=== PATIENT | female | born 1970 | race Caucasian/White ===

== ENCOUNTER 2024-09-28 23:27 | Emergency (ER) | payer BC, SELFPAY ==
--- OUTSIDE RECORDS SUMMARY | 2024-09-23 10:00 | XMS_ITS | Encounter Summary ---
Author Organization [facility] Address [address] [place] [address] Care Team Providers Care Advertising Sales Assistant Name Role Phone Neema Segal NP Unavailable Neema Segal NP Primary Care Provider + Reason for Visit * Reason Comments New Patient * Consult, Test & Treat (Routine) - New Request Specialty Diagnoses / Procedures Referred By Neris gan Referred To Contact Hematology and Oncology Diagnoses Breast asymmetry Neema Segal, PASTER SUPERVISOR [address] [place] [address] Phone: tel: fax: Oncology: [address] [place], [place] Phone: tel: fax: Referral ID Status Reason Start Date Expiration Date V isits Requested Visits Authorized [id number] New Request 08/23/2024 08/23/2025 1 1 Encounter Details Date Type Department Care Team (Late st Contact Info) Description 09/23/2024 10:00 AM CDT Office Visit Oncology: [address] [place], [place] [phone] Madelin Mahmood PA-C [address] [place], [place] [phone] (Work) Abnormal finding on breast imaging (Primary Dx) Social History Tobacco Use Types Packs/Day Years Used Date Smoking Tobacco: Former Cigarettes 1 27 Q uit: 03/19/2020 Smokeless Tobacco: Never Alcohol Use Standard Drinks/Week Comments Yes 25 (1 standard drink = 0.6 oz pu re alcohol) Alcohol Use Answer Date Recorded Alcohol Use Yes 09/18/2024 Male: 9+ ounces (15+ Standard Drinks) per week T hreshold Not on file 09/18/2024 Female: 4.8+ ounces (8+ Standard Drinks) per wee k Threshold 15 09/18/2024 Comments No Sex and Gender Information Value Date Recorded Sex Assigned at Female 06/09/2023 11:51 AM CDT Legal Sex Female 9:22 AM CDT Gender Identity Female 06/09/2023 11:51 AM CDT Sexual Orientation Not on file documented as of this encounter Last Filed Vital Signs Vital Sign Reading Time Taken Comments Blood Pressure 124/83 09/23/2024 9:45 AM CDT Pulse 83 09/23/2024 9:45 AM CDT Temperature 36.4 C (97.6 F) 09/23/2024 9:45 AM CDT Respiratory Rate 16 09/23/2024 9:45 AM CDT Oxygen Saturation 99% 09/23/2024 9:45 AM CDT Inhaled Oxygen Concentration - - Weight 112.3 kg (247 lb 9.6 oz) 09/23/2024 9:45 AM CDT Height 182 cm (5' 11.65 ) 09/23/2024 9:45 AM CDT Body Mass Index 33.91 09/23/2024 9:45 AM CDT documented in this encounter Functional Status * Does the patient have a hearing impairment: Answer Date of Assessment Author No 09/23/2024 9:45 AM CDT Ramona Liu * Does the patient have a visual impairment: Answer Date of Assessment Author Yes 09/23/2024 9:45 AM CDT Ramona Liu documented as of this encounter Progress Notes * Madelin Mahmood PA-C - 09/23/2024 10:00 AM CDT Name: Clary Bateman : 1970 AGE: 54 y.o. Patient identification was verified with two patient identifiers prior to today's discussion. DATE OF SERVICE: 09/23/2024 Subjective: Reason for Visit: New Patient Clary Bateman is a 54 y.o. female. DIAGNOSIS: Abnormal left breast imaging at 3:00, posterior depth History of Present Illness Ms. Bateman is a female who presented to the [facility] on 09/23/2024 at age 54 for pre-biopsy evaluation of her left breast. Ms. Bateman had no breast concerns such as palpable masses, skin changes, or nipple discharge prior to outside screening mammogram which revealed a left breast asymmetry. This persisted on diagnostic mammogram, and ultrasound showed a corresponding focal area of abnormal echogenicity at 3:00, posterior depth. Biopsy was recommended, and she was referred to [facility] for the biopsy. She has a history of a breast reduction x 2, but no prior history of breast biopsies. The outside imaging was reviewed by a breast radiologist prior to the patient's clinical exam and left diagnostic mammogram, targeted left breast ultrasound, and left stereotactic biopsy was scheduled to follow the clinic visit on the same day. BREAST IMAGING: Mammogram: -- Bilateral screening mammogram 08/20/24 ([facility]) revealed heterogeneously dense breast tissue. There is a focal asymmetry in the left breast at 4:00, 10 cm FTN on the exaggerated CC view. -- Left diagnostic mammogram 08/20/24 ([facility]) revealed the focal asymmetry persists with added compression. Ultrasound: -- Left breast ultrasound 08/20/24 ([facility]) revealed a small cyst at 3-4:00, 11 cm FTN with an adjacent0.7 cm cyst. There is an echogenic benign appearing band of tissue at 4:00, 11 cm FTN. A band of hypoechoic tissue measuring 0.8 x 0.6 cm demonstrating internal blood flow corresponding to the level of the mammographic finding. BIRADS 4. PROCEDURE: Breast reduction, 1997 and 2001 PERTINENT PMH: hypothyroidism, obesity with BMI 34, former smoker with 27 pack year history (quit 2020) FAMILY HISTORY: No family history of breast, ovarian, prostate, pancreatic, colon, or melanoma cancers. REFERRED BY: Neema Segal APRN The following medical/surgical/family/social history and the list of medications are current, as of09/23/2024 Past Medical History: Acquired hypothyroidism Allergy Back pain Surgical History: Procedure Laterality Date BREAST REDUCTION Bilateral 2002 BREAST SURGERY 1997 Reduction surgery COLONOSCOPY July 2021 Family History Problem Relation Name Age of Onset Diabetes Mother Soumya 11 Heart Disease Maternal Grandfather 55 Hypertension Brother Richar 45 Social History Socioeconomic History Marital status: Tobacco Use Smoking status: Former Current packs/day: 0.00 Average packs/day: 1 pack/day for 27.0 years (27.0 ttl pk-yrs) Types: Cigarettes Quit date: 03/19/2020 Years since quittin.5 Smokeless tobacco: Never Substance and Sexual Activity Alcohol use: Yes Alcohol/week: 25.0 standard drinks of alcohol Types: 25 Cans of beer per week Drug use: Never Sexual activity: Yes Partners: Male control/protection: Surgical, Post-menopausal Allergies Allergen Reactions Sulfa (Sulfonamide Antibiotics) FEVER and RASH Objective: levothyroxine (SYNTHROID) 137 mcg tablet Take one tablet by mouth daily. Vitals: 09/23/24 0945 BP: 124/83 BP Source: Arm, Right Upper Pulse: 83 Temp: 36.4 ??C (97.6 ??F) Resp: 16 SpO2: 99% TempSrc: Oral PainSc: Zero Weight: 112.3 kg (247 lb 9.6 oz) Height: 182 cm (5' 11.65 ) Body mass index is 33.91 kg/m??. Pain Score: Zero Fatigue Scale: 0-None Pain Addressed: N/A Patient Evaluated for a Clinical Trial: No treatment clinical trial available for this patient. Eastern Cooperative Oncology Group performance status is 0, Fully active, able to carry on all pre-disease performance without restriction.. Physical Exam Vitals reviewed. RIGHT BREAST EXAM: Breast: Consistent with previous reduction mastopexy. Scar is well-healed. No palpable masses. No skin changes. Skin Erythema: No Attachment of Overlying Skin: No Peau d' orange: No Chest Wall Attachment: No Nipple Inversion: No Nipple Discharge: No LEFT BREAST EXAM: Breast: Consistent with previous reduction mastopexy. Scar is well-healed. No palpable masses. No skin changes. Skin Erythema: No Attachment of Overlying Skin: No Peau d' orange: No Chest Wall Attachment: No Nipple Inversion: No Nipple Discharge: No RIGHT SANDRA BASIN EXAM: Axillary: negative Infraclavicular: negative Supraclavicular: negative LEFT SANDRA BASIN EXAM: Axillary: negative Infraclavicular: negative Supraclavicular: negative Constitutional: Well-developed and well-nourished. No acute distress. HEENT: Head: Normocephalic and atraumatic. Eyes: No discharge. No scleral icterus. Cardiovascular: Normal rate. Pulmonary/Chest: Effort normal. No respiratory distress. Musculoskeletal: No edema. Lymphadenopathy: No axillary adenopathy. No infraclavicular or supraclavicular adenopathy. Neurological: Alert and oriented to person, place and time. No cranial nerve deficit. Skin: Warm and dry. No rash noted. No erythema. No pallor. Psychiatric: Normal mood and affect. Behavior is normal. Judgement and thought content normal. Assessment and Plan: Clary Bateman is a 54 y.o. female with abnormal left breast imaging at 3:00, posterior depth Outside imaging and exam findings were discussed with Ms. Bateman today. She is scheduled for a leftdiagnostic mammogram, targeted left breast ultrasound, and left stereotactic biopsy later today, and I will call her with the pathology results when they are available. We discussed that pathology typically takes 2-3 business days to get back. We discussed that results are now released to [facility] as soon as they are finalized, and she may receive her results before I have had the opportunity to contact her. She was reassured that we will discuss her results in detail as soon as possible once they are available. We discussed what to expect during and after the biopsy. There are 3 possible outcomes from having a breast biopsy: 1) benign pathology with no surgical intervention recommended, 2) benign pathology with high risk features, 3) malignancy. A benign result would be reviewed by the radiologist who performed the procedure for confirmation and further recommendations. Atypia and high risk lesions will be reviewed at at our Benign Concordance Conference for concordance and further rec ommendations. The results and recommendations from these reviews will be communicated via a second phone call. If she is in need of a surgical intervention, I will facilitate consultation with one ofour breast surgeons. If this is a breast cancer, I will also facilitate consultation with medical on cology. Potential (although rare) complications of breast biopsy including bleeding and infection were discussed. Ms. Bateman was educated regarding signs/symptoms of infection, and she was encouragedto call with any questions or concerns. Contact information was provided. The potential for a palpable hematoma formation was also discussed. She may use OTC pain medication, ice, and compression as needed for pain. Ms. Bateman will RTC pending pathology results. She was given ample time to ask questions all of which were answered to her satisfaction. Left diagnostic mammogram, targeted left breast ultrasound, and left stereotactic biopsy today as scheduled - contact with pathology results RTC pending pathology results Madelin Mahmood PA-C Based on the Cures Act all results will be immediately released to [facility]. We will be completing athorough review of the additional information and putting it in context with the overall diagnosis.We will call once this has been completed to discuss the results, as well as the next steps in treatment. documented in this encounter Plan of Treatment Not on file documented as of this encounter Visit Diagnoses Diagnosis Abnormal finding on breast imaging- Primary Other (abnormal) findings on radiological examination of breast documented in this encounter Historical Medications * This list may reflect changes made after this encounter. other medication one Dose once. E2-PT cream levothyroxine (SYNTHROID) 137 mcg tablet Take one tablet by mouth daily. added in this encounter Additional Health Concerns Assessment Noted Time A fall risk assessment has been complete d for the patient 09/23/2024 9:45 AM CDT documented as of this encounter Care Teams Advertising Sales Assistant Relationship Specialty Start Date End Date Neema Segal NP [address] [place] [address] PCP - General Nurse Practitioner 08/26/24 Neema Segal NP [address] [place] [address] REFERRING MD Nurse Practitioner 08/23/24 documented as of this encounter
--- OUTSIDE RECORDS SUMMARY | 2024-09-23 10:09 | XMS_ITS | Encounter Summary ---
Author Organization [facility] Address [address] [place] [address] Care Team Providers Care Supervisor Pairing And Inspecting Name Role Phone Neema Segal NP Unavailable [phone] Neema Segal NP Primary Care Provider + Reason for Visit * Radiology Services (Routine) - New Request Specialty Diagnoses / Procedures Referred By Neris gan Referred To Contact Radiology Diagnoses Abnormal finding on breast imaging Procedures US BREAST TARGET LT US BREAST COMPLETE LT Madelin Mahmood PA-C [address] [place] [address] Phone: tel: fax: Referral ID Status Reason Start Date Expiration Date V isits Requested Visits Authorized [id number] New Request 08/27/2024 08/27/2025 1 1 Encounter Details Date Type Department Care Team (Latest Contact Info) Description 09/23/2024 10:09 AM CDT Hospital Encounter Imaging, Breast Ultrasound: [facility] [address] [place] [address]. [address], [address] [place] [phone] Madelin Mahmood PA-C [address] [place] [address] Arrived Discharge Disposition: Home or Self Care Social History Tobacco Use Types Packs/Day Years [...] on file documented as of this encounter Functional Status * Does the patient have a hearing impairment: Answer Date of Assessment Author No 09/23/2024 9:45 AM CDT Ramona Liu * Does the patient have a visual impairment: Answer Date of Assessment Author Yes 09/23/2024 9:45 AM CDT Ramona Liu documented as of this encounter Medications at Time of Discharge levothyroxine (SYNTHROID) 137 mcg tablet Take one tablet by mouth daily. other medication one Dose once. E2-PT cream documented as of this encounter Discharge Disposition Disposition Code Departure Means Destination Home or Self [facility] documented in this encounter Plan of Treatment Not on file documented as of this encounter Procedures Procedure Name Priority Date/Time Associated Diagnosis Comments US BREAST TARGET LT Routine 09/23/2024 1 1:39 AM CDT Abnormal finding on breast imaging documented in this encounter Results * (ABNORMAL) US BREAST TARGET LT (09/23/2024 11:39 AM CDT) Anatomical Region Laterality Modality Breast Left Ultrasound Impressions 09/23/2024 2:25 PM CDT : Low suspicion dilated duct versus fibrocystic change in the left breast at 3:00, 8 cm from the nipple. Ultrasound-guided biopsy will be performed today. ASSESSMENT: Left: 4 - Suspicious Overall: 4 - Suspicious RECOMMENDATION: Ultrasound - Guided Breast Biopsy - Left 09/24/2024 Electronically signed and approved by: Ana Soares MD 09/23/2024 2:25 PM By my electronic signature, I attest that I have personally reviewed the images for this examination and formulated the interpretations and opinions expressed in this report Narrative 09/23/2024 2:25 PM CDT [facility], Mammography: [facility] [address] [place] [phone] EXAM: MAMMO DIAGNOSTIC LT/DIEGO US BREAST TARGET LT 09/23/24 11:07 AM INDICATION: 54-year-old female presents for further evaluation of left breast findings initially identified on external facility mammogram prior to planned left breast biopsy. COMPARISON: Compared to: 07/25/2022 MAMMO SCREEN EXTERNAL IMAGING 08/14/2023 MAMMO SCREEN EXTERNAL IMAGING 08/20/2024 US BREAST EXTERNAL IMAGING 08/20/2024 MAMMO SCREEN EXTERNAL IMAGING BREAST COMPOSITION: There are scattered areas of fibroglandular density. TECHNIQUE: Mammogram: 2-D and 3-D (digital tomosynthesis) mammographic images were obtained of the left breast, including spot compression views. Ultrasound: Targeted left handheld breast ultrasound was performed by a automotive welder and Dr. Soares. FINDINGS: Diagnostic Mammogram: Spot compression views of the focal asymmetry of concern initially identified on external facility screening mammogram from 08/20/2024 demonstrate normal-appearing glandular tissue and a 0.7 cm benign-appearing low-density mass within the outer left breast at 2:30-3:00, posterior depth. There are postsurgical findings of prior left breast reduction. Diagnostic Ultrasound: There is normal glandular tissue and a few subcentimeter cysts in the left breast at 3:00, 9 cm from the nipple accounting for the focal asymmetry of concern on mammogram, including a dominant 0.7 cm cyst accounting for the mammographic mass. There is fibrocystic change versus a dilated duct at 3:00, 8 cm from the nipple, which will be the target for the ultrasound-guided biopsy today. 5 morphologically normal-appearing left axillary lymph nodes are documented. Post-procedure mammogram: There is an open coil tissue marker in expected position of the ultrasound finding. us Madelin Mahmood PA-C US ORDERABLES Final Result documented in this encounter Visit Diagnoses Diagnosis Abnormal finding on breast imaging Other (abnormal) findings on radiological examination of breast documented in this encounter Additional Health Concerns Assessment Noted Time A fall risk assessment has been complete d for the patient 09/23/2024 9:45 AM CDT documented as of this encounter Care Teams Supervisor Pairing And Inspecting Relationship Specialty Start Date End Date Neema Segal NP [address] [place] [address] PCP - General Nurse Practitioner 08/26/24 Neema Segal NP [address] [place] [address] REFERRING MD Nurse Practitioner 08/23/24 documented as of this encounter
--- OUTSIDE RECORDS SUMMARY | 2024-09-23 10:09 | XMS_ITS | Encounter Summary ---
Author Organization [facility] Address [address] [place] [address] Care Team Providers Care Client Hr Manager Name Role Phone Neema Segal NP Unavailable [phone] Neema Segal NP Primary Care Provider + Reason for Referral * Radiology Services (Routine) - New Request Specialty Diagnoses / Procedures Referred By Neris gan Referred To Contact Radiology Diagnoses Abnormal finding on breast imaging Procedures MAMMO DIAGNOSTIC LT/Madelin Bloom PA-C [address] [place] [address] Phone: tel: fax: Referral ID Status Reason Start Date Expiration Date V isits Requested Visits Authorized [id number] New Request 08/27/2024 08/27/2025 1 1 Reason for Visit * Radiology Services (Routine) - New Request Specialty Diagnoses / Procedures Referred By Neris gan Referred To Contact Radiology Diagnoses Abnormal finding on breast imaging Procedures MAMMO DIAGNOSTIC LT/Madelin Bloom PA-C [address] [place] [address] Phone: tel: fax: Referral ID Status Reason Start Date Expiration Date V isits Requested Visits Authorized [id number] New Request 08/27/2024 08/27/2025 1 1 Encounter Details Date Type Department Care Team (Latest Contact Info) Description 09/23/2024 10:09 AM CDT Hospital Encounter Imaging, Mammography: [address], [address] [place], [place] [phone] Madelin Mahmood PA-C [address] [facility] [place] [address] Arrived Discharge Disposition: Home or Self Care [...] Code Departure Means Destination Home or Self F[facility] documented in this encounter Plan of Treatment Not on file documented as of this encounter Procedures Procedure Name Priority Date/Time Associated Diagnosis Comments MAMMO DIAGNOSTIC LT/DIEGO Routine 09/23/2024 11:07 AM CDT Abnormal finding on breast imaging documented in this encounter Results * (ABNORMAL) MAMMO DIAGNOSTIC LT/DIEGO (09/23/2024 11:07 AM CDT) Anatomical Region Laterality Modality Breast Left Mammography Impressions 09/23/2024 2:25 PM CDT : Low [...] report Narrative 09/23/2024 2:25 PM CDT [facility] Imaging, Mammography: [facility] [address] [phone] EXAM: MAMMO DIAGNOSTIC LT/DIEGO US BREAST TARGET [...] handheld breast ultrasound was performed by a home health care respiratory therapist and Dr. Soares. FINDINGS: Diagnostic Mammogram: Spot [...] the ultrasound finding. us Madelin Mahmood PA-C MAMMO ORDERABLES Final Result documented in this encounter Visit Diagnoses Diagnosis Abnormal finding on breast imaging Other (abnormal) findings on radiological examination of breast documented in this encounter Additional Health Concerns Assessment Noted Time A fall risk assessment has been complete d for the patient 09/23/2024 9:45 AM CDT documented as of this encounter Care Teams Client Hr Manager Relationship Specialty Start Date End Date Neema Segal NP [address] [place] [address] PCP - General Nurse Practitioner 08/26/24 Neema Segal NP [address] [place] [address] REFERRING MD Nurse Practitioner 08/23/24 documented as of this encounter
--- OUTSIDE RECORDS SUMMARY | 2024-09-23 10:10 | XMS_ITS | Encounter Summary ---
Author Organization [facility] Address [address] [place] [address] Care Team Providers Care Rink Rat Name Role Phone Neema Segal NP Unavailable [phone] Neema Segal NP Primary Care Provider + Reason for Visit * Radiology Services (Routine) - New Request Specialty Diagnoses / Procedures Referred By Neris gan Referred To Contact Radiology Diagnoses Abnormal finding on breast imaging Procedures US BIOPSY BREAST 1ST LESION LT STEREO BR BX/CLIP DEPL/SPEC/LT Madelin Mahmood PA-C [address] [place] [address] Phone: tel: fax: Referral ID Status Reason Start Date Expiration Date V isits Requested Visits Authorized [id number] New Request 08/27/2024 08/28/2025 1 1 Encounter Details Date Type Department Care Team (Latest Contact Info) Description 09/23/2024 10:10 AM CDT - 09/23/2024 11:59 PM CDT Hospital Encounter Imaging, Breast Ultrasound: [address], [address] [place] [address] Madelin Mahmood PA-C [address] [place] [address] Arrived Discharge Disposition: Home or [...] Code Departure Means Destination Home or Self Correction documented in this encounter Progress Notes * Haleigh Milian RN - 09/23/2024 1:00 PM CDT I spoke with Clary (after verifying her full name and date of ) regarding her breast biopsy and imaging scheduled at the [place] location on 09/23/2024. She was informed after the clinic appointment she will be escorted to Breast Imaging for 11:00 mammogram and ultrasound, prior to biopsy. A driver retraining instructor is not required, wear comfortable clothing and supportive bra, there are no food or fluid restrictions prior to her procedure . She was educated in detail what to expect before, during and after her procedure. Clary verified she currently takes no anti-coagulants or have known bleeding disorders. Her questions were answered and she verbalized understanding of the information I gave her over the phone today. * Nataliia Ryder RN - 09/23/2024 1:00 PM CDT Scan: Ultrasound Guided Breast Procedure Order verified: Yes Allergies reviewed: Pt denies any contraindications including allergies/sensitivity to metal or nickel: Yes Patient medical history and home medication reviewed: Yes. Pre-Procedure: Patient educated on breast procedure, possible complications and follow-up care. Allquestions addressed and consent signed with provider. Skin marked per protocol. Patient does not request post procedure callback. Will await pathology results callback from provider. Will call with any questions or concerns given post- procedure care instructions and callback number. [facility] [facility] Nurse [phone] or [phone] documented in this encounter Plan of Treatment Not on file documented as of this encounter Procedures Procedure Name Priority Date/Time Associated Diagnosis Comments US BIOPSY BREAST 1ST LESION LT Routine 09/23/2024 1:35 PM CDT Abnormal finding on breast imaging SURGICAL PATHOLOGY Routine 09/23/2024 1: 29 PM CDT Abnormal finding on breast imaging documented in this encounter Results * SURGICAL PATHOLOGY (09/23/2024 1:29 PM CDT) Final Diagnosis A. Breast, Left Breast 3:00 8cm FTN , ultrasound guided biopsy: Usual ductal hyperplasia, apocrine metaplasia, fibrocystic changes. Attestation: By this signature, I attest that I have personally formulated the final interpretation expressed in this report and that the above diagnosis is based upon my examination of the slides and/or other material indicated in this report. 09/24/2024 11:52 AM CDT [facility] DEPT PATH AND LAB MEDICINE at 1152 CDT Diagnosis Comment Pursuant to the Social Media Editor Program at the [facility] Pathology Department, selected slides from this case have been concurrently reviewed by the following pathologist: Dr. Le Porter who agrees with the final diagnosis. 09/24/2024 11:52 AM CDT [facility] DEPT PATH AND LAB MEDICINE Gross Description A. Received in formalin labeled left breast 3:00 8 cm FTN is a 1.5 x 0.2 x 0.1 cm aggregate of cylindrical yellow-zavala, bloodstained, fatty tissue fragments. The specimen is entirely submitted in A1. The breast biopsy is removed from the patient at 1329 on 09/23/2024, placed in formalin at 1335 on 09/23/2024, and not removed from formalin until 2340 on 09/23/2024. (nh) 09/24/2024 11:52 AM CDT [facility] DEPT PATH AND LAB MEDICINE Other Information Testing performed at [facility], [address] [place] [address]. [facility] #[id number]. 09/24/2024 11:52 AM CDT [facility] DEPT PATH AND LAB MEDICINE Tissue SPECIMEN FROM LEFT BREAST / Unknown 09/23/2024 1:29 PM CDT 09/23/2024 1:48 PM CDT us Madelin Mahmood PA-C [facility] BKR PATH/CYTO ORD Final Result Performing Organization Address City/State/[facility] Co de Phone Number [facility] [address] [place] [address], documented in this encounter Visit Diagnoses Diagnosis Abnormal finding on breast imaging Other (abnormal) findings on radiological examination of breast documented in this encounter Administered Medications Inactive Administered Medications Medication Order MAR Action Action Date Dose Rate Site buffered lidocaine 1% /EPINEPHrine [id number] vial 3 mL, Injection, ONCE, 1 dose, On 09/23/24 at 1345, Compound in procedure area - Use Locally as Anesthetic Lidocaine 1% - EPINEPHrine 1:100,000 8.5 mL Sodium bicarbonate 8.4% 1.5 mL Vial Total Volume 10 mL, DO NOT SEND this medication unless it is requested. This med is usually available in floor stock. Given 09/23/2024 1:36 PM CDT 3 mL buffered lidocaine 1% syringe 1 mL, Injection, ONCE, 1 dose, On Mon09/23/24 at 1345, Compound in procedure area - Use Locally as Anesthetic Lidocaine 1% injection 4.5 mL Sodium bicarbonate 8.4% 0.5 mL Syringe Total Volume 5 mL, DO NOT SEND this medication unless it is requested. This med is usually available in floor stock. Given 09/23/2024 1:36 PM CDT 1 mL documented in this encounter Additional Health Concerns Assessment Noted Time A fall risk assessment has been complete d for the patient 09/23/2024 9:45 AM CDT documented as of this encounter Care Teams Rink Rat Relationship Specialty Start Date End Date Neema Segal NP [address] [place] [address] PCP - General Nurse Practitioner 08/26/24 Neema Segal NP [address] [place] [id number] REFERRING MD Nurse Practitioner 08/23/24 documented as of this encounter
--- NOTE | 2024-09-28 23:34 | ECG_ITS ---
[email or web address] Test Date: 2024-09-28 Pat Name: Clary Escobedo Department: Room: Gender: Female Log Turner: : 1970 Requested By: Gentry Acosta Order Number: [id number] Montana MD: Dion Suarez M.D. Measurements Intervals [place] Rate: 171 P: 0 TN: 0 QRS: 22 QRSD: 86 T: 18 QT: 267 QTc: 451 Interpretive Statements ATRIAL FIBRILLATION WITH RAPID VENTRICULAR RESPONSE MODERATE ST DEPRESSION [0.05+ mV ST DEPRESSION] CRITICAL TEST RESULT No previous ECG available for comparison Electronically Signed On 09-29-2024 18:35:34 CDT by Dion Suarez M.D. [email or web address]
--- OUTSIDE RECORDS SUMMARY | 2024-09-28 23:39 | XMS_ITS | Clinical Summary ---
Author Organization [facility] Address [address] [place] [address] Phone [facility]Everywhere[facility] Care Team Providers Care Military Cook Name Role Phone Neema Segal NP Primary Care Provider + Allergies Active Allergy Reactions Criticality Noted Date Comments Sulfa Antibiotics Low 03/07/2013 Other reaction(s): fever/rash Medications UNABLE TO FIND Med Name: ET/PT 2.5/200/4mg/ml Active levothyroxine (SYNTHROID) 75 MCG tabletIndications :Subclinical hypothyroidism Take 1 tablet (75 mcg total) by mouth 1 (one) time each day. 90 tablet 025 Active Testosterone 10 MG/ACT (2%) gel 0 Refill(s), Therapy type = Maintenance 024 2024 Discontinued Progesterone 200 MG capsule TAKE 1 CAPSULE BY MOUTH DAILY AT BEDTIME 2024 Discontinued levothyroxine (SYNTHROID) 75 MCG tabletIndications :Subclinical hypothyroidism TAKE 1 TABLET(75 MCG) BY MOUTH DAILY 90 tablet 025 2024 Discontinued(R eorder) Active Problems Problem Noted Date Diagnosed Date Middle insomnia 06/26/2024 Herpes simplex 06/28/2021 Encounter for screening mamm ogram for malignant neoplasm of breast 05/25/2020 Other depressive disorder 01/17/2014 Overweight 11/29/2013 Otalgia 09/08/2012 Encounters Date Type Department Care Team Description 09/23/2024 Orders Only [facility] [address] [place] [phone] Neema Pop NP Breast asymmetry 09/17/[address] [address] Neema Pop NP Subclinical hypothyroidism 09/09/2024 4:30 PM CDT Office Visit [address] [address] Neema Pop NP Dietary counseling and surveillance (Primary Dx); Other specified diabetes mellitus with other specified complication, without long-term current use of insulin ([facility]); Dyslipidemia; Subclinical hypothyroidism 09/06/2024 Results Follow-Up [address] [address] Neema Pop NP 09/03/2024 9:00 AM CDT Office Visit [address] [address] Neema Pop NP Annual physical exam (Primary Dx); Class 2 obesity; BMI 35.0-35.9,adult; Dietary counseling and surveillance; Thyroid disorder; Depression with anxiety; Osteopenia, unspecified location; Refused pneumococcal vaccine; History of smoking 10-25 pack years 08/23/[address] [phone] Samantha Barnett RN 08/23/2024 Orders Only [address] [address] Samantha Barnett, MARQUISE Breast asymmetry 08/21/2024 9:00 AM CDT Office Visit [address] [phone] Neema Pop NP Breast asymmetry (Primary Dx) 08/02/2024 Refill [facility] [address] [place] [phone] Neema Pop NP Subclinical hypothyroidism 07/24/2024 11:15 AM CDT Office Visit [facility] [address] [place] [phone] Chin Hernandez MD Middle insomnia (Primary Dx) from Last 3 Months Immunizations Immunization Administration Dates Next Due Covid-19 (Vesta J&J) (CVX-212) 11/11/2020 Tdap (ADACEL BOOSTRIX) (CVX-115) 06/28/2021 Zoster (Shingrix) (TWO VIALS -MUST MIX) recombinant (CVX-187) 10/04/2021,06/28/2021 Family History Medical History Relation Name Comments Heart disease Maternal Grandfather No Known Problems Maternal Grandmother Diabetes Mother Relation Name Status Comments Brother Alive Father Maternal Grandfather Maternal Grandmother Alive Mother Alive Paternal Grandfather Paternal Grandmother Social History Tobacco Use Types Packs/Day Years Used Date Smoking Tobacco: Former Cigarettes 1 20 0 06/29/1999 - 06/29/2019 Smokeless Tobacco: Never Tobacco Cessation:Counseling Given: Not Answered Alcohol Use Standard Drinks/Week Comments Not Currently 0 (1 standard drink = 0.6 oz pur e alcohol) 20-30 beers over the weekend Intimate Partner Violence Answer Date R ecorded Insults You Not on file 05/19/2021 Threatens You Not on file 05/19/2021 Screams at You Not on file 05/19/2021 Physically Hurt Not on file 05/19/2021 Intimate Partner Violence Score Not on file 05/19/2021 Alcohol Use Answer Date Recorded Alcohol Use Status Not Currently 01/19/2023 Financial Resource Strain Answer Date R ecorded In the past 12 months has e electric, gas, oil, or water company threatened to shut off services in your home? No 08/28/2024 Do problems getting child ca re make it difficult for you to work or study? No 08/28/2024 Do you have a high school degree? Yes 08/28/2024 Do you have a job? Yes 08/28/2024 How often does this describe you? I don't have enough money to pay my bills. Never 08/28/2024 Depression Answer Date Recorded PHQ Total Score 7 09/03/2024 Stress Answer Date Recorded Stress in your Life Moderate 08/28/2024 Dealing with Stress Moderately effective 025 Physical Activity Answer Date Recorded How often do you engage in m oderate physical activity for 30 minutes or more? 1 to 3 days a week 08/28/2024 Vigorous Physical Activity 1 to 3 days a week Time Spent Sitting More than 8 hours 08/28/2024 Food Insecurity Answer Date Recorded Within the past 12 months, y ou worried that your food would run out before you got money to buy more. Never true 08/28/2024 Within the past 12 months, t he food you bought just didn t last and you didn t have money to get more. Never true 08/28/2024 Transportation Needs Answer Date Record ed In the past 12 months, has l ack of transportation kept you from medical appointments, meetings, work, or from getting things needed for daily living? (check all that apply) No 2024 Housing Stability Answer Date Recorded Are you worried or concerned that in the next two months you may not have stable housing that you own, rent, or stay in as a part of a household? No 08/28/[address] you li ve. Do you have problems with any of the following? (check all that apply) None of the above 08/11 Comments No Sex and Gender Information Value Date Recorded Sex Assigned at Female 06/29/2021 7:38 AM CDT Legal Sex Female 2:01 AM MANAGER DELIVERY Gender Identity Female 06/29/2021 7:38 AM CDT Sexual Orientation Not on file Last Filed Vital Signs Vital Sign Reading Time Taken Comments Blood Pressure 136/88 09/03/2024 9:11 AM CDT Pulse 78 09/03/2024 9:11 AM CDT Temperature 37.1 C (98.7 F) 09/03/2024 9:11 AM CDT Respiratory Rate 20 09/03/2024 9:11 AM CDT Oxygen Saturation 98% 09/03/2024 9:11 AM CDT Inhaled Oxygen Concentration - - Weight 112 kg (247 lb 11.2 oz) 09/03/2024 9:11 A M CDT Height 180.3 cm (5' 11 ) 09/03/2024 9:11 AM CDT Body Mass Index 34.55 09/03/2024 9:11 AM CDT Plan of Treatment Health Maintenance Due Date Last Done Comments Diabetic Comprehensive Foot Exam 1981 Diabetic Retinal Eye Exam 1981 Diabetic Kidney Health Eval (eGFR & Alb/CR ratio urine) 04/29/2023 04/29/2022, 01/26/2022, 07/15/2021 Lung Cancer Screening 01/07/2024 01/06/2023 Influenza Immunization (#1) 2024 Hemoglobin A1C Testing 12/04/2024 , 10/11/2023, 11/18/2022, Additional history exists Annual Preventive Exam 09/03/2025 5, 09/03/2024, 11/18/2022, Additional history exists Covid-19 Immunization (2 - season) 2025 11/11/2020 Postponed from 11/12/2023 (Awaiting appt) Dental Cleaning/Exam 09/03/2025 09/03/2024, 11/19/19 23 Pneumococcal: Ped (0 to 5 Yrs) and At-Risk Member (6 to 64 Yrs) (1 of 2 - PCV) 09/08/2025 Postponed from 1990 (Awaiting appt) Breast Cancer Screening 10/02/2025 06/10/19 23, 05/25/2020, 05/25/2020, Additional history exists Postponed from 06/09/2024 (Awaiting appt) Cervical Cancer Screening 06/28/2026 06/28/2021, Tetanus Diphtheria and Pertussis Immunization (3 - Td or Tdap) 06/29/2031 06/28/2021, 04/13/2012 Colorectal Cancer Screening 07/28/2031 07/27/2021 Zoster Immunization Completed 10/04/2021, Hep B Infection Screening - Triple Screen Discontinued 11/18/2022, 06/28/2021, 06/28/2021, Additional history exists Hepatitis C Screening Completed 11/18/2022, 022 HIV Screening Completed 09/03/2024, 11/18/2022 HIB Immunization Aged Out No longer e ligible based on patient's age to complete this topic HPV Immunization Aged Out No longer e ligible based on patient's age to complete this topic Hepatitis A Immunization Aged Out No longer eligible based on patient's age to complete this topic Hepatitis B Immunization Discontinued Polio Immunization Aged Out No longer eligible based on patient's age to complete this topic Goals Goal Patient Goal Type Associated Problems Recent Progress Patient-Stated? Author I will walk after dinner 5/7 and after breakfast 2/7 days. General On track( 023 11:32 AM CDT) Yes Marci Melo, MARQUISE Note: SMART Goal: I will walk after dinner 5/7 and after breakfast 2/7 days. Motivators: Barriers/Strategies: Confidence (1-10): 10 I will observe what and how much I eat this week. And what helps and hurts me that is in my environment General Yes Marci Melo, RN Note: SMART Goal: I will observe what and how much I eat this week. And what helps and hurts me that is in my environment Motivators: Barriers/Strategies: Confidence (1-10): I will eat 1/2 cup of beans 5/7 week. General Yes Marci Melo, RN Note: SMART Goal: I will eat 1/2 cup of beans 5/7 week. Motivators: Barriers/Strategies: Confidence (1-10): Procedures Procedure Name Priority Date/Time Associated Diagnosis Comments AMB REFERRAL TO BREAST CLINIC Routine 09/23/2024 3:47 PM CDT Breast asymmetry N/O EGG COMPONENT PANEL - [facility] Routine 09/03/2024 9:30 AM CDT REFLEX RESPIRATORY ALLERGY PROFILE Routine 09/03/2024 9:30 AM CDT FOOD ALLERGY PROFILE WITH REFLEXES Routine 09/03/2024 9:30 AM CDT Annual physical exam TSH THYROID STIMULATING HORMONE WITH REFLEX TO T4 Routine 09/03/2024 9:30 AM CDT Thyroid disorder Depression with anxiety RPR WITH REFLEX TO TITER (QT RPR) AND CONFIRMATORY TESTING Routine 09/03/2024 9:30 AM CDT Annual physical exam IRON, TIBC TOTAL IRON BINDING CAPACITY AND FERRITIN PANEL - [facility]SHARON Routine 09/03/2024 9:30 AM CDT Annual physical exam HIV 1/2 AG AND ABS, FOURTH GENERATION W/REFLEXES Routine 09/03/2024 9:30 AM CDT Annual physical exam HEMOGLOBIN A1C Routine 09/03/2024 9:30 AM CDT Class 2 obesity BMI 35.0-35.9,adult Dietary counseling and surveillance Annual physical exam LIPID PANEL Routine 09/03/2024 9:30 AM CDT Class 2 obesity BMI 35.0-35.9,adult Dietary counseling and surveillance Annual physical exam COMPREHENSIVE METABOLIC PANEL Routine 09/03/2024 9:30 AM CDT Class 2 obesity BMI 35.0-35.9,adult Dietary counseling and surveillance Annual physical exam CBC WITH DIFFERENTIAL/PLATELET Routine 09/03/2024 9:30 AM CDT Annual physical exam CT THORAX LOW DOSE LUNG CANCER SCREENING WITHOUT CONTRAST CPT [id number] Routine 01/06/2023 7:29 AM CDT Annual physical exam HEPATITIS PANEL, GENERAL - [facility] Routine 11/18/2022 9:53 AM CDT Annual physical exam MAMMOGRAM SCREENING DIGITAL BREAST TOMOSYNTHESIS 3D BILATERAL CPT [id number] Routine 06/09/2022 8:16 AM CDT Well woman exam with routine gynecological exam ALBUMIN/CREATININE RATIO, RANDOM URINE ([id number]) Routine 04/29/2022 10:42 AM MANAGER DELIVERY Screening for diabetes mellitus PAP TEST AUTO AGE BASED GUIDELINES Routine 06/28/2021 12:00 PM CDT Well woman exam with routine gynecological exam from Last 3 Months or Most Recently Relevant to Health Maintenance Results * Ambulatory referral to Breast Clinic (09/23/2024 3:47 PM CDT) Neema Segal NP OUTPATIENT REFERRAL ERIC GARIBAY Final Result * (ABNORMAL) N/O EGG COMPONENT PANEL - [facility] (09/03/2024 9:30 AM CDT) Egg (nGal d 2 Ovalbumin) IgE 0.39(H) kU/L [facility] CLASS (ALLERGEN) [address] [facility] Ovomucoid 0.10(H) kU/L [facility] Class Ovomucoid Ab IgE 0/1 [facility] Comment: Positive egg component IgE results may be clinically significant even if quantification levels (kU/L) are low. Gal d 1 (Ovomucoid) is resistant to heat denaturation and IgE reactivity to this egg component is associated with allergic reactions to both raw and cooked egg, even in baked goods. Gal d 2 (Ovalbumin) is relatively susceptible to heat denaturation. While IgE reactivity to Gal d 2 is associated with allergic reactions to raw and whole cooked egg, in baked goods, egg may be tolerated. Children with IgE reactivity directed primarily to Gal d 2 are more likely to outgrow their egg allergy than children with IgE reactivity directed primarily to Gal d 1. Additional information can be found at [email or web address] 09/03/2024 9:30 AM CDT 09/03/2024 10:30 PM CDT Neema Segal NP LAB BLOOD ORDERABLES Fin al Result [facility] [address] [phone] * (ABNORMAL) Food Allergy Profile With Reflexes - [facility] (45100) (09/03/2024 9:30 AM CDT) Egg white IgE 0.37(H) kU/L [facility] Class Egg White IgE 1 [facility] Peanut IgE <0.10 kU/L [facility] CLASS PEANUT IGE 0 [facility] Wheat IgE 0.21(H) kU/L [facility] Class Wheat 0/1 [facility] Jay Em IgE <0.10 kU/L [facility] Class Jay Em IgE 0 [facility] Codfish IgE <0.10 kU/L [facility] Class Codfish IgE 0 [facility] Milk IgE <0.10 kU/L [facility] Class Milk IgE 0 [facility] SOYBEAN (F14) IGE <0.10 kU/L [facility] Class Soybean IgE 0 [facility] Shrimp IgE <0.10 kU/L [facility] Class - Shrimp IgE Rast 0 [facility] Scallop IgE <0.10 kU/L [facility] Class 0 [facility] Sesame seed IgE <0.10 kU/L [facility] Class Sesame Seed (F10) 0 [facility] Taylor nut IgE <0.10 kU/L [facility] Class 0 [facility] Cashew nut IgE <0.10 kU/L [facility] Class Cashew IgE 0 [facility] Agate IgE <0.10 kU/L [facility] Class Agate IgE 0 [facility] [place] IgE <0.10 kU/L [facility] Class 0 [facility] Tuna IgE <0.10 kU/L [facility] Class Tuna IgE 0 [facility] Blood (Blood, Venous) 09/03/2024 9:30 AM CDT 09/03/2024 10:30 PM CDT us Neema Segal INFORMATION MANAGER LAB BLOOD ORDERABLES Fin al Result [facility] [address] [phone] * REFLEX RESPIRATORY ALLERGY PROFILE ([id number]) (09/03/2024 9:30 AM CDT) Interpretation [facility] Comment: Specific Level of Allergen IGE Class kU/L Specific IGE Antibody ----- --------- 0 <0.10 Absent/Undetectable 0/1 0.10-0.34 Very Low Level 1 0.35-0.69 Low Level 2 0.70-3.49 Moderate Level 3 3.50-17.4 High Level 4 17.5-49.9 Very High Level 5 50-100 Very High Level 6 >100 Very High Level The clinical relevance of allergen results of 0.10-0.34 kU/L are undetermined and intended for specialist use. Allergens denoted with a include results using one or more analyte specific reagents. In those cases, the test was developed and its analytical performance characteristics have been determined by [email or web address]. It has not been cleared or approved by the U.S. Food and Drug Administration. This assay has been validated pursuant to the CLIA regulations and is used for clinical purposes. 09/03/2024 9:30 AM CDT 09/03/2024 10:30 PM CDT Neema Segal INFORMATION MANAGER LAB BLOOD ORDERABLES [facility] al Result [facility] [address] [place] [address] * TSH Thyroid Stimulating Hormone with reflex to T4 (01485) (09/03/2024 9:30 AM CDT) TSH w/reflex to FT4 3.53 mIU/L [email or web address] Comment: Reference Range > or = 20 Years 0.40-4.50 Ranges First trimester 0.26-2.66 Second trimester 0.55-2.73 Third trimester 0.43-2.91 Blood (Blood, Venous) 09/03/2024 9:30 AM CDT 09/03/2024 10:30 PM CDT Neema Segal INFORMATION MANAGER LAB BLOOD ORDERABLES Fin al Result Performing Organization Address [facility] de Phone Number [facility] [address] [place] [address] * Iron, TIBC Total Iron Binding Capacity and Ferritin Panel - [facility],Sharon ([id number]) (09/03/2024 9:30 AM CDT) Pathologist [facility] Iron 142 45 - 160 mcg/dL [facility] TIBC 347 250 - 450 mcg/dL (calc) [facility] Iron Saturation 41 16 - 45 % (calc) [facility] Ferritin 82 16 - 232 ng/mL [facility] Blood (Blood, Venous) 09/03/2024 9:30 AM CDT 09/03/2024 10:30 PM CDT Neema Segal INFORMATION MANAGER LAB BLOOD ORDERABLES Fin al Result Performing Organization Address [facility] de Phone Number [facility] [address] [place] [address] * CBC Complete Blood Count with Differential and Platelet (08646) (09/03/2024 9:30 AM CDT) Pathologist [facility] Auto WBC 5.7 3.8 - 10.8 Thousand/u L [facility] RBC 4.81 3.80 - 5.10 Million/uL [facility] Hemoglobin 14.6 11.7 - 15.5 g/dL [facility] Hematocrit 44.6 35.0 - 45.0 % [facility] MCV 92.7 80.0 - 100.0 fL [facility] MCH 30.4 27.0 - 33.0 pg [facility] MCHC 32.7 32.0 - 36.0 g/dL [facility] Comment: For adults, a slight decrease in the calculated MCHC value (in the range of 30 to 32 g/dL) is most likely not clinically significant; however, it should be interpreted with caution in correlation with other red cell parameters and the patient's clinical condition. RDW 12.4 11.0 - 15.0 % [facility] Platelets 242 140 - 400 Thousand/u L [facility] MPV 9.6 7.5 - 12.5 fL [facility] Neutrophils Absolute 3,739 1,500 - 7,800 cells/uL [facility] Lymphocytes Absolute 1,334 850 - 3,900 cells/uL [facility] Monocytes Absolute 405 200 - 950 cells/uL [facility] Eosinophils Absolute 194 15 - 500 cells/uL [facility] Basophils Absolute 29 0 - 200 cells/uL [facility] Neutrophils Relative 65.6 % [facility] Lymphocytes Relative 23.4 % [facility] Monocytes Relative 7.1 % [facility] Eosinophils Relative 3.4 % [facility] Basophils Relative 0.5 % [facility] Blood (Blood, Venous) 09/03/2024 9:30 AM CDT 09/03/2024 10:30 PM CDT Neema Segal INFORMATION MANAGER LAB BLOOD ORDERABLES Fin al Result Performing Organization Address [facility] de Phone Number [facility] [address] [place] [address] * RPR (Diagnosis) with Reflex to Titer and Confirmatory Testing (45001) (09/03/2024 9:30 AM CDT) RPR NON-REACTI VE NON-REACTI VE [facility] Comment: No laboratory evidence of syphilis. If recent exposure is suspected, submit a new sample in 2-4 weeks. Blood (Blood, Venous) 09/03/2024 9:30 AM CDT 09/03/2024 10:30 PM CDT Neema Segal INFORMATION MANAGER LAB BLOOD ORDERABLES Fin al Result [facility] [address] [place] [address] * HIV 1/2 Antigen and Antibodies, 4th Generation, with Reflexes (98348) (09/03/2024 9:30 AM CDT) Pathologist [facility] HIV 1/2 Screen (CHIV) [facility] Comment: HIV Negative HIV-1 antigen and HIV-1/HIV-2 antibodies were not detected. There is no laboratory evidence of HIV infection. HIV Combo AB/AG NON-REACTI VE NON-REACTI VE [facility] Blood (Blood, Venous) 09/03/2024 9:30 AM CDT 09/03/2024 10:30 PM CDT Neema Segal INFORMATION MANAGER LAB BLOOD ORDERABLES Fin al Result Performing Organization Address [facility] de Phone Number [facility] [address] [place] [address] * (ABNORMAL) Hgb A1C Hemoglobin Glycosylated (18604) (09/03/2024 9:30 AM CDT) Pathologist [facility] Hemoglobin A1C 6.3(H) <5.7 % [facility] Comment: For someone without known diabetes, a hemoglobin A1c value between 5.7% and 6.4% is consistent with prediabetes and should be confirmed with a follow-up test. For someone with known diabetes, a value <7% indicates that their diabetes is well controlled. A1c targets should be individualized based on duration of diabetes, age, comorbid conditions, and other considerations. This assay result is consistent with an increased risk of diabetes. Currently, no consensus exists regarding use of hemoglobin A1c for diagnosis of diabetes for children. Blood (Blood, Venous) 09/03/2024 9:30 AM CDT 09/03/2024 10:30 PM CDT Neema Segal INFORMATION MANAGER LAB BLOOD ORDERABLES Fin al Result Performing Organization Address [facility] Co de Phone Number [facility] [address] [address] * (ABNORMAL) Lipid panel (69151) (09/03/2024 9:30 AM CDT) Cholesterol 180 <200 mg/dL [facility] Total HDL-C Direct 48(L) > OR = 50 mg/dL [facility] Triglycerides 90 <150 mg/dL [facility] LDL Calculated 113(H) mg/dL (calc) [facility] Comment: Reference range: <100 Desirable range <100 mg/dL for primary prevention; <70 mg/dL for patients with CHD or diabetic patients with > or = 2 CHD risk factors. LDL-C is now calculated using the Kalyani calculation, which is a validated novel method providing better accuracy than the Friedewald equation in the estimation of LDL-C. James NGUYEN et al. MOISE. 2013;310(19): 1547-6484 (http://education.SureGene/faq/OKY389) Chol/HDL Ratio 3.8 <5.0 (calc) [facility] Non HDL Chol. (LDL+VLDL) 132(H) <130 mg/dL (calc) [facility] Comment: For patients with diabetes plus 1 major ASCVD risk factor, treating to a non-HDL-C goal of <100 mg/dL (LDL-C of <70 mg/dL) is considered a therapeutic option. Blood (Blood, Venous) 09/03/2024 9:30 AM CDT 09/03/2024 10:30 PM CDT us Neema Segal INFORMATION MANAGER LAB BLOOD ORDERABLES Fin al Result [facility] [address] * (ABNORMAL) Comprehensive metabolic panel (39084) (09/03/2024 9:30 AM CDT) Glucose 102(H) 65 - 99 mg/dL [facility] Comment: Fasting reference interval For someone without known diabetes, a glucose value between 100 and 125 mg/dL is consistent with prediabetes and should be confirmed with a follow-up test. BUN 7 7 - 25 mg/dL [facility] Creatinine 0.81 0.50 - 1.03 mg/dL [facility] eGFR 87 > OR = 60 mL/min/1. 73m2 [facility] BUN/Creatinine Ratio SEE NOTE: 6 - 22 (calc) [facility] Comment: Not Reported: BUN and Creatinine are within reference range. Sodium 139 135 - 146 mmol/L [facility] Potassium 4.5 3.5 - 5.3 mmol/L [facility] Chloride 102 98 - 110 mmol/L [facility] CO2 28 20 - 32 mmol/L [facility] Calcium 9.7 8.6 - 10.4 mg/dL [facility] Total Protein 7.2 6.1 - 8.1 g/dL [facility] Albumin 4.5 3.6 - 5.1 g/dL [facility] Globulin, Total 2.7 1.9 - 3.7 g/dL (calc) [facility] A/G Ratio 1.7 1.0 - 2.5 (calc) [facility] Total Bilirubin 0.9 0.2 - 1.2 mg/dL [facility] Alkaline Phosphatase 54 37 - 153 U/L [facility] AST 22 10 - 35 U/L [facility] ALT (SGPT) 23 6 - 29 U/L [facility] Blood (Blood, Venous) 09/03/2024 9:30 AM CDT 09/03/2024 10:30 PM CDT us Neema Segal INFORMATION MANAGER LAB BLOOD ORDERABLES Fin al Result [facility] [address] [address] * CT Low Dose Lung Cancer Screening CPT 62303 (01/06/2023 7:29 AM CDT) Anatomical Region Laterality Modality Body Computed Tomogra phy Neema Segal NP IMG CT PROCEDURES Final Result * (ABNORMAL) Hepatitis panel, general - [facility] ([id number]) (11/18/2022 9:53 AM CDT) Hepatitis A Antibody, Total NON-REACTI VE NON-REACT TA [facility] Comment: For additional information, please refer to http://MedPlexus/faq/VHP773 (This link is being provided for informational/ educational purposes only.) HEPATITIS B SURFACE ANTIBODY QL REACTIVE(A ) NON-REACT TA [facility] Hepatitis B Surface Antigen NON-REACTI VE NON-REACT TA [facility] Comment: For additional information, please refer to http://MedPlexus/faq/NSH481 (This link is being provided for informational/ educational purposes only.) Hepatitis B Core Ab Total NON-REACTI VE NON-REACT TA [facility] Comment: For additional information, please refer to http://MedPlexus/faq/YOZ650 (This link is being provided for informational/ educational purposes only.) HEPATITIS C ANTIBODY NON-REACTI VE NON-REACT TA [facility] Comment: HCV antibody was non-reactive. There is no laboratory evidence of HCV infection. In most cases, no further action is required. However, if recent HCV exposure is suspected, a test for HCV RNA (test code 19925) is suggested. For additional information please refer to http://MedPlexus/faq/MSG73a2 (This link is being provided for informational/ educational purposes only.) Blood (Blood, Venous) 11/18/2022 9:53 AM CDT 11/19/2022 4:14 AM CDT Neema Kioko-Hardwick INFORMATION MANAGER LAB BLOOD ORDERABLES Fin al Result Performing Organization Address [facility] de Phone Number [facility] [address] [place] [address] * Mammogram Screening Breast Tomosynthesis Bilateral (06/09/2022 8:16 AM CDT) Anatomical Region Laterality Modality Breast Bilateral Mammography Neema Segal INFORMATION MANAGER IMG BI PROCEDURES Final Result * Microalbumin, Random Urine with Creatinine (73317,68845) (04/29/2022 10:42 AM MANAGER DELIVERY) Creatinine, Urine 94 20 - 275 mg/dL [facility] Microalb, Ur 0.2 See Note: mg/dL [facility] Comment: Reference Range: Reference Range Not established Alb/Creat Ratio, Ur 2 <30 mcg/mg creat [facility] Comment: The ADA defines abnormalities in albumin excretion as follows: Albuminuria Category Result (mcg/mg creatinine) Normal to Mildly increased <30 Moderately increased 30-299 Severely increased > OR = 300 The ADA recommends that at least two of three specimens collected within a 3-6 month period be abnormal before considering a patient to be within a diagnostic category. Urine (Urine, Clean Catch) 04/29/2022 10:42 AM MANAGER DELIVERY 04/29/2022 11:48 PM MANAGER DELIVERY Neema Segal INFORMATION MANAGER LAB URINE ORDERABLES Fin al Result Performing Organization Address [facility] Co de Phone Number [facility] [address] [place] [address] * PAP Test auto age based guidelines (80140) - [facility] (06/28/2021 12:00 PM CDT) Comment [email or web address] Comment: This order for age-based cervical cancer and STI screening follows ACOG guidelines(PB 168, 140, LHB392). See individual assays for performing site location. Swab (Cervical Swab) 06/28/2021 12:00 PM CDT 06/29/2021 5:37 AM CDT Neema Segal NP LAB CYTOLOGY ORDERABLES Final Result [facility] [address] [place] [address] from Last 3 Months or Most Recently Relevant to Health Maintenance [facility] NB Care Teams Military Cook Relationship Specialty Start Date End Date Neema Segal NP [address] [place] [address] PCP - General Family Medicine 02/23/23
--- OUTSIDE RECORDS SUMMARY | 2024-09-28 23:39 | XMS_ITS | Clinical Summary ---
Author Organization [facility] Address [address] [place] [address] Care Team Providers Care Lead Web Application Developer Name Role Phone Neema Segal NP Unavailable [phone] Neema Segal NP Primary Care Provider + Source Comments Some departments are not documenting in the electronic medical record. If you do not see the information that you expected, contact Release of Information in the Health Information Management department at [phone] for further assistance in locating additional records.[facility] Allergies Active Allergy Reactions Criticality Noted Date Comments Sulfa (Sulfonamide Antibiotics) FEVER,RASH Medium 02/11 Medications levothyroxine (SYNTHROID) 137 mcg tablet Take one tablet by mouth daily. Active other medication one Dose once. E2-PT cream Active Active Problems Problem Noted Date Diagnosed Date Abnormal finding on breast imaging 09/06/2024 Overview (09/06/2024): DIAGNOSIS: Abnormal left breast imaging at 3:00, posterior depth HISTORY: Ms. Bateman is a female who presented [...] was recommended, and she was referred to [facility] for the biopsy. She has a history of a breast reduction, but no prior history of breast biopsies. [...] at 3-4:00, 11 cm FTN with an adjacent 0.7 cm cyst. Tehre is an echogenic benign appearing band of tissue at 4:00, 11 cm FTN. A band of hypoechoic tissue measuring 0.8 x 0.6 cm demonstrating internal blood flow corresponding to the level of the mammographic finding. BIRADS 4. REPRODUCTIVE HEALTH: Age at first Menarche: Age at First Live : Age at Menopause: : Para: PROCEDURE: None PERTINENT PMH: FAMILY HISTORY: PHYSICAL EXAM on PRESENTATION: MEDICAL ONCOLOGY: RADIATION ONCOLOGY: REFERRED BY: Neema Segal APRN Encounters Date Type Department Care Team Description 09/25/2024 Results Follow-Up Oncology: [facility] [place] [address] [place], [place] [address]y. Level 1-[address] [place] [address] Marco Patton RN US BIOPSY BREAST 1ST LESION LT 09/24/2024 Results Follow-Up Imaging, Breast Ultrasound: [address] [place] [address] Marco Patton RN SURGICAL PATHOLOGY 09/23/2024 10:10 AM CDT - 09/23/2024 11:59 PM CDT Hospital Encounter Imaging, Breast Ultrasound: [address] [place] [address] Madelin Mahmood PA-C Arrived Discharge Disposition: Home or Self Care 09/23/2024 10:09 AM CDT Hospital Encounter Imaging, Breast Ultrasound: [address] [place] [address] Madelin Mahmood PA-C Arrived Discharge Disposition: Home or Self Care 09/23/2024 10:09 AM CDT Hospital Encounter Imaging, Mammography: [address] [place] [address] Madelin Mahmood PA-C Arrived Discharge Disposition: Home or Self Care 09/23/2024 10:00 AM CDT Office Visit Oncology: [address] Madelin Mahmood PA-C Abnormal finding on breast imaging (Primary Dx) 09/23/2024 Travel 08/26/2024 Nurse Navigation Oncology: [address] 1[address]2 [place] [phone] Flakita Yan RN Abnormal finding on breast imaging (Primary Dx) 08/20/2024 12:05 AM CDT - 08/20/2024 11:59 PM CDT Hospital Encounter Imaging: [facility] [address] [facility] [address] [place] [address] Discharge Disposition: Home or Self Care 08/20/2024 - 08/20/2024 12:04 AM CDT Hospital Encounter Imaging: [facility] [address] [facility] [address] [place] [address] Discharge Disposition: Home or Self Care from Last 3 Months Surgical History Surgery Date Site/Laterality Comments BREAST REDUCTION 03/13/2001 - 03/12/2002 Bilateral BREAST SURGERY 1998 Reduction surgery July 2021 Medical History Medical History Date Comments Allergy 1975 Sufa-based drugs Back pain 1984 Lower back pain Acquired hypothyroidism 2021 Hashimot os Family History Medical History Relation Comments Hypertension Brother 45 Heart Disease Maternal Grandfather 55 Diabetes Mother 11 Relation Status Comments Brother Alive Maternal Grandfather Mother Alive Social History Tobacco Use Types Packs/Day Years Used Date Smoking Tobacco: Former Cigarettes 1 27 Q uit: 03/19/2020 Smokeless Tobacco: Never Tobacco Cessation:Counseling Given: Not Answered Alcohol Use Standard Drinks/Week Comments Yes 25 [...] AM CDT Sexual Orientation Not on file Obstetrics History Para Term AB IAB SAB Ectopic Multiple Livin g Live Births 0 Last Filed Vital Signs Vital Sign Reading [...] Mass Index 33.91 09/23/2024 9:45 AM CDT Plan of Treatment Health Maintenance Due Date Last Done Comments HIV SCREENING 1986 HEPATITIS C SCREENING 1989 PHYSICAL (COMPREHENSIVE) EXAM 1989 CERVICAL CANCER SCREENING 02/18/1992 COLORECTAL CANCER SCREENING 02/18/2016 PNEUMOCOCCAL VACCINE AGE 50 AND OVER (1 of 1 - PCV) 2021 BREAST CANCER SCREENING 06/10/2023 06/10/19 23, 06/09/2022, 05/25/2020, Additional history exists COVID-19 VACCINE (3 - season) 2023 11/30/2020, 11/11/2020 DEPRESSION SCREENING 03/13/2024 INFLUENZA VACCINE (#1) 2024 DTAP/TDAP VACCINES (3 - Td or Tdap) 06/29/2031 06/28/2021, 04/13/2012 SHINGLES RECOMBINANT VACCINE Completed 10/04/2021, 06/28/2021 HPV VACCINES Aged Out No longer eligi ble based on patient's age to complete this topic MENINGOCOCCAL B VACCINE Aged Out No l onger eligible based on patient's age to complete this topic Medical Devices Implanted Type Area Greaser And Oiler Device Identifier Shelf Expiration Date Model / Serial / Lot Marker Breast Biopsy Hydromark Titanium 15g Open Coil - [id number] Implanted:Qty : 1 on 09/23/2024 by Ana Soares MD at [facility] Left: Breast LEICA Arledia [id number] 05/23/2027 4010-02-1 5-T3 / [id number] / [id number] D Procedures Procedure Name Priority Date/Time Associated Diagnosis Comments US BIOPSY BREAST 1ST LESION LT Routine 09/23/2024 1:35 PM CDT Abnormal finding on breast imaging SURGICAL PATHOLOGY Routine 09/23/2024 1: 29 PM CDT Abnormal finding on breast imaging US BREAST TARGET LT Routine 09/23/2024 1 1:39 AM CDT Abnormal finding on breast imaging MAMMO DIAGNOSTIC LT/DIEGO Routine 09/23/2024 11:07 AM CDT Abnormal finding on breast imaging MAMMO SCREEN EXTERNAL IMAGING Routine 08/20/2024 12:05 AM CDT US BREAST EXTERNAL IMAGING Routine 08/20/2024 12:00 AM CDT from Last 3 Months Results * US BIOPSY BREAST 1ST LESION LT (09/23/2024 1:35 PM CDT) Anatomical Region Laterality Modality Breast Left Ultrasound Addenda Addendum by Ana Soares MD on 09/25/2024 11:05 AM CDT RADIOLOGY-PATHOLOGY CONCORDANCE ASSESSMENT Pathology Result: A. Breast, Left Breast 3:00 8cm FTN , ultrasound guided biopsy: Usual ductal hyperplasia, apocrine metaplasia, fibrocystic changes. This pathology result is benign and concordant with the imaging findings. RECOMMENDATION AND DUE DATE: Return to Annual Screening Mammogram - Bilateral 08/20/2025 Electronically signed and approved by: Ana Soares MD 09/25/2024 11:05 AM Impressions 09/23/2024 2:26 PM CDT : Status post ultrasound-guided biopsy. RECOMMENDATION: Waiting for Pathology is recommended for the left breast. Electronically signed and approved by: Ana Soares MD 09/23/2024 2:26 PM Narrative 09/23/2024 2:26 PM CDT [facility] Imaging, Breast Ultrasound: [address] [phone] EXAM: US BIOPSY BREAST 1ST LESION LT 09/23/24 1:35 PM INDICATION: Ultrasound-guided biopsy of left breast dilated duct versus fibrocystic change at 3:00, 8 cm from the nipple was requested. COMPARISON: Compared to: 08/20/2024 US BREAST EXTERNAL IMAGING 08/20/2024 MAMMO SCREEN EXTERNAL IMAGING 09/23/2024 MAMMO DIAGNOSTIC LT/DIEGO 09/23/2024 US BREAST TARGET LT TECHNIQUE: The procedure was performed by Dr. Soares. Informed consent was obtained. Using sterile preparation, local anesthetic, and ultrasound guidance, 2 core samples were obtained with a 14 gauge needle from a lateral approach. An open coil-shaped tissue marker was placed. There were no immediate complications. Specimens were sent in formalin for histologic evaluation. Postprocedural mammogram is dictated separately. us Madelin M Mahmood PA-C US ORDERABLES Edited Result - Final * SURGICAL PATHOLOGY (09/23/2024 1:29 PM CDT) [...] in this report. 09/24/2024 11:52 AM CDT [facility] DEPT PATH AND LAB MEDICINE at 1152 CDT Diagnosis Comment Pursuant to the Director Of Revenue Program at the [facility] Pathology Department, selected slides from this case have been concurrently reviewed by the following pathologist: Dr. Le Porter who agrees with the final diagnosis. 09/24/2024 11:52 AM CDT [facility] Gross Description A. [...] on 09/23/2024. (nh) 09/24/2024 11:52 AM CDT [facility]IC[facility] Other Information Testing performed at [facility], [address] [place] [address]. [place] #[id number]. 09/24/2024 11:52 AM CDT [facility] LAB [facility]IC[facility] Tissue SPECIMEN FROM LEFT BREAST / Unknown 09/23/2024 1:29 PM CDT 09/23/2024 1:48 PM CDT us Madelin Mahmood PA-C [facility] BKR PATH/CYTO ORD Final Result [facility] DEPT PATH AND LAB MEDICINE [address] [place] [address], [place] * (ABNORMAL) US BREAST TARGET LT (09/23/2024 [...] report Narrative 09/23/2024 2:25 PM CDT [facility] Imaging, Mammography: [facility] [address] [phone] EXAM: MAMMO DIAGNOSTIC LT/DIEGO US BREAST TARGET [...] handheld breast ultrasound was performed by a load dispatcher local and Dr. Soares. FINDINGS: Diagnostic Mammogram: Spot [...] Madelin Mahmood PA-C US ORDERABLES Final Result * (ABNORMAL) MAMMO DIAGNOSTIC LT/DIEGO (09/23/2024 11:07 [...] report Narrative 09/23/2024 2:25 PM CDT [facility] Imaging, Mammography: [facility] [address] [place] [phone] EXAM: MAMMO DIAGNOSTIC LT/DIEGO US BREAST TARGET [...] handheld breast ultrasound was performed by a load dispatcher local and Dr. Soares. FINDINGS: Diagnostic Mammogram: Spot [...] in expected position of the ultrasound finding. Madelin Mahmood PA-C MAMMO ORDERABLES Final Result * MAMMO SCREEN EXTERNAL IMAGING (08/20/2024 12:05 AM CDT) Narrative Scheduling, Silent - 08/26/2024 1:11 PM CDT This order has been auto finalized and does not contain a result. us Radiologist Outpatient RADIOLOGY EXTERNAL ORDERA BLES Final Result * US BREAST EXTERNAL IMAGING (08/20/2024 12:00 AM CDT) Narrative Scheduling, Silent - 08/26/2024 1:11 PM CDT This order has been auto finalized and does not contain a result. us Radiologist Outpatient RADIOLOGY EXTERNAL ORDERA BLES Final Result from Last 3 Months Insurance BCBS [employer] BLUE OUT OF STATE Care Teams Lead Web Application Developer Relationship Specialty Start Date End Date Neema Segal NP [address] [place] [address] PCP - General Nurse Practitioner 08/26/24 Neema Segal NP [address] [place] [address] REFERRING MD Nurse Practitioner 08/23/24
--- OUTSIDE RECORDS SUMMARY | 2024-09-28 23:39 | XMS_ITS | Encounter Summary ---
Author Organization [facility] Address [address] [place] [address] Phone [email or web address] Care Team Providers Care Bus Aide Name Role Phone Neema Segal NP Primary Care Provider + Encounter Details Date Type Department Care Team (Late st Contact Info) Description 09/23/2024 Orders Only [facility] [address] [place] [address] Neema Segal, SOURAV [address] [place] [address] Breast asymmetry Social History Tobacco Use Types Packs/Day Years Used Date Smoking Tobacco: Former Cigarettes 1 20 0 06/29/1999 - 06/29/2019 Smokeless Tobacco: Never Alcohol Use Standard Drinks/Week Comments Not Currently [...] ecorded In the past 12 months has [employer] e electric, gas, oil, or water company [...] AM CDT Legal Sex Female 2:01 AM MANUFACTURING OPERATIONS MANAGER Gender Identity Female 06/29/2021 7:38 AM CDT Sexual Orientation Not on file documented as of this encounter Plan of Treatment Not on file documented as of this encounter Goals Goal Patient Goal Type Associated Problems Recent Progress Patient-Stated? Author I will walk after dinner 07/17 and after breakfast 2/7 days. General On track( 023 11:32 AM CDT) Yes Marci Melo, RN Note: SMART Goal: I will walk after [...] of beans 5/7 week. General Yes Marci Melo RN Note: SMART Goal: I will eat 1/2 cup of beans 5/7 week. Motivators: Barriers/Strategies: Confidence (1-10): documented as of this encounter Procedures Procedure Name Priority Date/Time Associated Diagnosis Comments AMB REFERRAL TO BREAST CLINIC Routine 09/23/2024 3:47 PM CDT Breast asymmetry documented in this encounter Results * Ambulatory referral to Breast Clinic (09/23/2024 3:47 PM CDT) Neema Segal NP OUTPATIENT REFERRAL ORDE LANI Final Result documented in this encounter Visit Diagnoses Diagnosis Breast asymmetry documented in this encounter Care Teams Bus Aide Relationship Specialty Start Date End Date Neema Segal NP [address] [place] [address] PCP - General Family Medicine 02/23/23 documented as of this encounter
--- OUTSIDE RECORDS SUMMARY | 2024-09-28 23:39 | XMS_ITS | Encounter Summary ---
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 documented in this encounter Plan of Treatment [...] in my environment General Yes Marci Melo, MARQUISE Note: SMART Goal: I will observe what [...] Confidence (1-10): documented as of this encounter Visit Diagnoses Not on filedocumented in this encounter Care Teams Regional Construction Manager Relationship Specialty Start Date End Date Neema Segal NP [address] [place] [address] PCP - General Family Medicine 02/23/23 documented as of this encounter
--- OUTSIDE RECORDS SUMMARY | 2024-09-28 23:39 | XMS_ITS | Clinical Summary ---
Author Organization [facility] Address [address] [place] [address] Care Team Providers Care Pipelines Supervisor Name Role Phone Pcp, No Primary Care Provider Neema Doss MEDICAL ASSISTANT FLOAT Unavailable [phone] Allergies Active Allergy Reactions Criticality Noted Date Comments Sulfa Antibiotics Low 03/07/2013 Other reaction(s): fever/rash Medications levothyroxine (Synthroid, Levoxyl) 75 MCG tablet Take 1 tablet (75 mcg total) by mouth 1 (one) time each day before breakfast. 4 Active NON FORMULARY Testosterone and Estrogen Pellet Insert. Active predniSONE (Deltasone) 10 MG tabletIndicatio ns:Chronic daily headache Take 6 tabs daily x 5 days, then 5 tabs x 1 day, then 4 tabs x 1 day, then 3 tabs x 1 day, then 2 tabs x 1 day, then 1 tab x 1 day 45 tablet 5 Active diazePAM (Valium) 10 MG tabletIndicatio ns:Chronic daily headache Take 1 tablet (10 mg total) by mouth every night. No driving for 6-8 hours after use 10 tablet 5 Active Active Problems Problem Noted Date Diagnosed Date Encounter for contraceptive management, unspecif ied 11/26/2022 11/26/2022 Encounter for surveillance of injectable contrac eptive 11/26/2022 11/26/2022 Hyperlipidemia, unspecified 11/26/202211/11 Other fatigue 11/26/2022 11/26/2022 Prediabetes 11/26/2022 11/26/2022 Nicotine dependence, unspecified, in remission 0 11/26/2022 11/26/2022 Herpes simplex 06/28/2021 11/26/2022 Allergic rhinitis 04/10/2018 11/26/2022 Tobacco user 04/10/2018 11/26/2022 Obesity 04/05/2018 11/26/2022 Other depressive disorder 01/17/20142022 Overweight 11/29/2013 11/26/2022 Otalgia 09/08/2012 11/26/2022 Immunizations Immunization Administration Dates Next Due Vesta Sars-cov-2 Vaccination 11/11/2020 Tdap 06/28/2021,04/13/2012 Zoster, Recombinant 10/04/2021,06/28/2021 Family History Medical History Relation Name Comments ADD / ADHD Brother No Known Problems Father Diabetes type I Mother Relation Name Status Comments Brother Alive Father Alive Mother Alive Sister Alive Social History Tobacco Use Types Packs/Day Years Used Date Smoking Tobacco: Former Cigarettes Smokeless Tobacco: Never Tobacco Cessation:Counseling Given: No Alcohol Use Standard Drinks/Week Comments Yes 20 (1 standard drink = 0.6 oz pure alcohol) Patient endorses binge drinking on weekends. PHQ-2 Answer Date Recorded Patient Health Questionnaire-2 Score 0 04/18/2024 Comments Unknown Sex and Gender Information Value Date Recorded Sex Assigned at Not on file Legal Sex Female 1:36 AM EST Gender Identity Not on file Sexual Orientation Not on file Last Filed Vital Signs Vital Sign Reading Time Taken Comments Blood Pressure 130/80 04/18/2024 7:14 AM LEGAL NURSE CONSULTANT Pulse 80 04/18/2024 7:14 AM LEGAL NURSE CONSULTANT Temperature 36.8 C (98.2 F) 11/26/2022 6:32 AM CDT Respiratory Rate 16 11/26/2022 6:32 AM CDT Oxygen Saturation 97% 04/18/2024 7:14 AM LEGAL NURSE CONSULTANT Inhaled Oxygen Concentration - - Weight 114 kg (251 lb 9.6 oz) 04/18/2024 7:14 AM LEGAL NURSE CONSULTANT Height 180.3 cm (5' 11 ) 04/18/2024 7:14 AM LEGAL NURSE CONSULTANT Body Mass Index 35.09 04/18/2024 7:14 AM LEGAL NURSE CONSULTANT Plan of Treatment Health Maintenance Due Date Last Done Comments CT Colonography 1971 Cologuard 1971 Colonoscopy 1971 Colorectal Cancer Screening 1971 FIT 1971 FOBT 1971 Sigmoidoscopy 1971 MMR Vaccines (1 of 1 - Standard series) 02/18/1972 Annual Physical 08/18/1973 Obesity Intervention 1977 Hepatitis B Vaccines (1 of 3 - 19+ 3-dose series) 1990 Pneumococcal Vaccine: 50+ Years (1 of 2 - PCV) 1990 Mammogram 07/19/2022 07/19/2021, 05/11, 03/21/2019, Additional history exists COVID-19 Vaccine ( season) 2023 11/30/2020, 11/11/2020 Diabetes: Hemoglobin A1C 11/19/2023 11/18/2022 Pap Smear 06/28/2024 06/28/2021 Diabetes Screening 10/10/2024 10/11/2023, 0 11/26/2022, 11/18/2022 Influenza Vaccine (#1) 2024 Depression Screening 04/18/2025 04/18/2024 Cervical Cancer Screening 06/28/2026 HPV/Cotest 06/28/2026 06/28/2021 Lipid Panel 11/19/2027 11/18/2022 DTaP/Tdap/Td Vaccines (3 - Td or Tdap) 06/29/2031 06/28/2021, 04/13/2012 Respiratory Syncytial Virus (RSV) 60 years and older and/or patients (1 - 1-dose 75+ series) 2046 Zoster Vaccines Completed 10/04/2021, 06/28/2021 HIV Screening Completed 11/18/2022 HPV Vaccines Aged Out No longer eligi ble based on patient's age to complete this topic Hepatitis A Vaccines Aged Out No long er eligible based on patient's age to complete this topic Meningococcal B Vaccine Aged Out No l onger eligible based on patient's age to complete this topic Meningococcal Vaccine Aged Out No oscar edouard eligible based on patient's age to complete this topic Respiratory Syncytial Virus (RSV) <20 months Aged Out No longer eligible based on patient's age to complete this topic Procedures Procedure Name Priority Date/Time Associated Diagnosis Comments COMPREHENSIVE METABOLIC PANEL STAT 11/26/2022 4:10 AM CDT [facility] MAMMOGRAPHY Routine 07/19/2021 5:15 AM CDT from Last 3 Months or Most Recently Relevant to Health Maintenance Results * (ABNORMAL) Comprehensive Metabolic Panel (CMP) (11/26/2022 4:10 AM CDT) Pathologist [facility] Sodium 139 136 - 145 mmol/L 11/26/2022 4:43 AM CDT [facility] Potassium 3.8 3.5 - 5.1 mmol/L 11/26/2022 4:43 AM CDT [facility] Chloride 106 98 - 107 mmol/L 11/26/2022 4:43 AM CDT [facility] Carbon Dioxide 17.0(L) 22.0 - 29.0 mmol/L 11/26/2022 4:43 AM CDT [facility] Anion Gap 16 3 - 16 mmol/L 11/26/2022 4:43 AM CDT [facility] BUN 10.9 8.0 - 20.0 mg/dL 11/26/2022 4:43 AM CDT [facility] Creatinine 0.70 <=1.20 mg/dL 11/26/2022 4:43 AM CDT [facility] BUN/Creatinine Ratio 15.6 7.0 - 25.0 11/26/2022 4:43 AM CDT [facility] Glucose 168(H) 70 - 100 mg/dL 11/26/2022 4:43 AM CDT [facility] Calcium 8.8 8.6 - 10.2 mg/dL 11/26/2022 4:43 AM CDT [facility] AST 34 <=40 U/L 11/26/2022 4:43 AM CDT [facility] ALT 28 <=33 U/L 11/26/2022 4:43 AM CDT [facility] Alkaline Phosphatase 103 35 - 105 U/L 11/26/2022 4:43 AM CDT [facility] Protein, Total 7.3 6.0 - 8.0 g/dL 11/26/2022 4:43 AM CDT [facility] Albumin 4.00 3.50 - 5.20 g/dL 11/26/2022 4:43 AM CDT [facility] Globulin 3.3 g/dL 11/26/2022 4:43 AM CDT [facility] A/G Ratio 1.2 11/26/2022 4:43 AM CDT [facility] Bilirubin, Total <0.20 <=1.20 mg/dL 11/26/2022 4:43 AM CDT [facility] eGFR 104.9 mL/min/{1 .73_m2} 11/26/2022 4:43 AM CDT [facility] Comment: GFR calculated based on CKD-EPI 2020 Creatinine Equation Age (Years) Average GFR 20-29 116 mL/min/1.73 m2 30-39 107 mL/min/1.73 m2 40-49 99 mL/min/1.73 m2 50-59 93 mL/min/1.73 m2 60-69 85 mL/min/1.73 m2 70+ 75 mL/min/1.73 m2 Acceptable GFR: >= 60 mL/min/1.73 m2 Chronic Kidney Disease: <60 mL/min/1.73 m2 Kidney Failure: <15 mL/min/1.73 m2 Blood Venous blood specimen / Unknown Venipuncture / Unknown 11/26/2022 4:10 AM CDT 11/26/2022 4:13 AM CDT Lizeth Nuñez MD LAB BLOOD ORDERABLES Final R esult [facility] [address] [place] [address], * HM Mammography (07/19/2021 5:15 AM CDT) Anatomical Region Laterality Modality Other Bobbi Mireles MD HEALTH MAINTENANCE Final Resu lt from Last 3 Months or Most Recently Relevant to Health Maintenance Insurance [facility] Care Teams Pipelines Supervisor Relationship Specialty Start Date End Date Pcp, No PCP - General 11/26/22 Neema Sanabria APRN [address] [place] [address] Referring Physician Nurse Practitioner 10/23/23
--- OUTSIDE RECORDS SUMMARY | 2024-09-28 23:39 | XMS_ITS | Encounter Summary ---
Author Organization [facility] Address [address] [place] [address] Care Team Providers Care Overedge Machine Operator Name Role Phone Neema Segal NP Unavailable [phone] Neema Segal NP Primary Care Provider + Encounter Details Date Type Department Care Team (Late st Contact Info) Description 09/25/2024 Results Follow-Up Oncology: [facility] [place] [address] [place] [address] Marco Patton RN BIOPSY BREAST [address]ST [address] LT Social History Tobacco Use Types Packs/Day Years [...] Ramona Liu documented as of this encounter Miscellaneous Notes * Telephone Encounter - Marco Patton RN - 09/25/2024 11:58 AM CDT Outbound call. Two pt identifiers confirmed prior to proceeding with call. Advised of radiology recommendation to go back to routine screening mammogram which can be ordered by PCP. Pt states understanding. No additional questions at this time. ----- Message from Madelin Mahmood PA-C sent at 09/25/2024 11:41 AM CDT ----- Please let her know this is concordant and she can go back to routine screening mammogram which canbe ordered by her PCP. Madelin ----- Message ----- From: Ana Soares MD Sent: 09/23/2024 2:26 PM CDT To: Madelin Mahmood PA-C documented in this encounter Plan of Treatment Not on file documented as of this encounter Visit Diagnoses Not on filedocumented in this encounter Additional Health Concerns Assessment Noted Time A fall risk assessment has been complete d for the patient 09/23/2024 9:45 AM CDT documented as of this encounter Care Teams Overedge Machine Operator Relationship Specialty Start Date End Date Neema Segal NP [address] [place] [address] PCP - General Nurse Practitioner 08/26/24 Neema Segal NP [address] [place] [address] REFERRING MD Nurse Practitioner 08/23/24 documented as of this encounter
--- OUTSIDE RECORDS SUMMARY | 2024-09-28 23:39 | XMS_ITS | Encounter Summary ---
Author Organization [facility] Address [address] [place] [address] Care Team Providers Care Health Safety Specialist Name Role Phone Neema Segal NP Unavailable [phone] Neema Segal NP Primary Care Provider + Encounter Details Date Type Department Care Team (Latest Contact Info) Description 09/23/2024 Travel Social History Tobacco Use Types Packs/Day Years [...] of Assessment Author No 09/23/2024 9:45 AM SANDRAT Ramona Liu * Does the patient have a visual impairment: Answer Date of Assessment Author Yes 09/23/2024 9:45 AM SANDRAT Ramona Liu documented as of this encounter Plan of Treatment Not on file documented as of this encounter Visit Diagnoses Not on filedocumented in this encounter Additional Health Concerns Assessment Noted Time A fall risk assessment has been complete d for the patient 09/23/2024 9:45 AM CDT documented as of this encounter Care Teams Health Safety Specialist Relationship Specialty Start Date End Date Neema Segal NP [address] [place] [address] PCP - General Nurse Practitioner 08/26/24 Neema Segal NP [address] [place] [address] REFERRING MD Nurse Practitioner 08/23/24 documented as of this encounter
--- OUTSIDE RECORDS SUMMARY | 2024-09-28 23:39 | XMS_ITS | Encounter Summary ---
Author Organization [facility] Address [address] [place] [address] Care Team Providers Care Profiler Hand Name Role Phone Neema Segal NP Unavailable [phone] Neema Segal NP Primary Care Provider + Encounter Details Date Type Department Care Team (Late st Contact Info) Description 09/24/2024 Results Follow-Up Imaging, Breast Ultrasound: [facility] [address] [place] [address] Marco Patton RN SURGICAL PATHOLOGY Social History Tobacco Use Types Packs/Day Years [...] Telephone Encounter - Marco Patton RN - 09/24/2024 12:12 PM CDT Outbound pt to go over results. Two pt identifiers confirmed prior to proceeding with call. Advisedpathology is benign. We will follow up with final concordance recommendations. Pt states understanding. ----- Message from Madelin Mahmood PA-C sent at 09/24/2024 11:59 AM CDT ----- Please let her know that her pathology was benign, and we will follow up with concordance recommendations. Madelin ----- Message ----- From: [facility], Background User Sent: 09/24/2024 11:52 AM CDT To: Madelin Mahmood PA-C documented in this encounter Plan of Treatment Not on file documented as of this encounter Visit Diagnoses Not on filedocumented in this encounter Additional Health Concerns Assessment Noted Time A fall risk assessment has been complete d for the patient 09/23/2024 9:45 AM CDT documented as of this encounter Care Teams Profiler Hand Relationship Specialty Start Date End Date Neema Segal NP [address] [place] [address] PCP - General Nurse Practitioner 08/26/24 Neema Segal NP [address] [place] [address] REFERRING MD Nurse Practitioner 08/23/24 documented as of this encounter
--- OUTSIDE RECORDS SUMMARY | 2024-09-28 23:40 | XMS_ITS | Data Portability ---
Author Organization [facility], [facility], [place] Address [address] [place] [address] Care Team Providers Care Corrugator Supervisor Name Role Phone YONI MARINO Referring Provider Assessment Encounter Date Assessment Date Assessment LastModified by Organization Details LastModified Time 02/22/2023 02/22/2023 I had the pleasure of seeing Clary back today. She is doing well s/p in-office sinus surgery and inferior turbinate reduction. Debridement was performed today and tolerated well. She is breathing much better. She'll continue her irrigations and start AYR gel, flonase, and azelastine and will follow-up in 4 weeks or sooner PRN. Thank you for the opportunity to work with this pleasant patient. Please feel free to call with questions/concer ns. [email or web address] Not available 02/22/2023 12:56:02 04/11/2023 04/11/2023 I had the pleasure of seeing Edyta in the office today. She presents to clinic for evaluation of ear pain, fullness, pressure and drainage on the right for the last 4-5 days. She has previously had a similar episode that improved with cleaning. After resolution, she used mometasone briefly with good relief and has been doing well until the last week. She is also s/p turbinate reduction and sinus surgery 02/10/23. She has a good nasal airway, continues to have some drainage and sneezing. On exam, desquamated debris filling right EAC. Cleaned and treated topically. We discussed the options, risk and benefits of keeping right ear dry. Continue nasal saline rinses, and flonase and azelastine. We will see her back in one week, or sooner PRN. Thank you for referring this kind patient. Please contact my office with any questions or concerns. [email or web address] Not available 04/11/2023 16:05:43 04/18/2023 04/18/2023 I had the pleasure of seeing Clary back in the office today. She presents to clinic for follow up of right sided otitis externa and s/p turbinate reduction and sinus surgery 02/10/23. She was last seen on 04/11/23 and right ear was cleaned and treated topically at that time. She was instructed to continue nasal saline rinses, flonase and azelastine. Her ears feel better, but she continues to have left frontal headaches. On exam, ears clear bilaterally. Good nasal airway. Right ear treated topically with triamcinolone. Gentle debridement performed and tolerated well. We discussed the findings of her in-office sinus CT scan which shows mild mucosal thickening in multiple sinuses. Specifically, left frontal ostia is open and unobstructed. She says today she is asymptomatic. We discussed the options, risk and benefits of adding nasonex to her current regimen. She is agreeable to this. We will see her back in clinic as needed or with any questions or concerns. Thank you for referring this kind patient. Please contact my office with any questions or concerns. [email or web address] Not available 04/19/2023 11:06:37 12/15/2023 12/15/2023 I had the pleasure of seeing Clary back in the office today. She has a history of otitis externa and presents to clinic for evaluation of possible return of symptoms. She feels possible fluid in her right ear. On exam, ears clear bilaterally. Good nasal airway. We reviewed her audiogram which shows stable hearing compared to visit one year ago, slight improvement on the right. Recommend follow-up in two years, or sooner PRN. Reassurance provided regarding ears today. No interventions needed. We are happy to see her back as needed. Thank you for referring this kind patient. Please contact my office with any questions or concerns. [email or web address] Not available 12/19/2023 11:02:57 Plan of Treatment Reminders Order Date Submit Date Provider Last Modified By Organization Details Last Modified Time Details Appointments None record ed. Lab None record ed. Referral None record ed. Procedures None record ed. Surgeries None record ed. Imaging None record ed. Medication Orders None record ed. Patient TargetsNo targets recorded. Patient InstructionsNo instructions recorded. Reason for Referral None Reported. Results Created Date Observation Date Name Description Value Unit Range Abnormal Flag Note LastModifiedBy Organization Detail LastModifiedTime 01/11/20 24 01/10/2024 CT, tempo ral bone, w/o contr ast No observ ation record ed. [email or web address] [address] [place], [address], 02/01/2024 10:18:52 Result Notes None recorded. Procedures Surgical History Date Name Laterality Status Provider Name and Address Organization Details Recorded Time 4 Audiologic Assessment completed Tobin Ruiz [address] [place], [address], [place] [facility], [facility] 12/15/2023 10:42:[address] Sinus - In office completed ISABEL Acuna [address] [place], [address], [place] [facility], [facility] 04/19/2023 11:04:06 4 Endoscopy without Debridement-312 31 completed Maile Cantu [place] - [facility], [facility] 04/18/2023 14:55:47 4 Ear cleaning completed ISABEL Acuna [address] [place], [address], [place] - [facility], [facility] 04/11/2023 16:02:51 3 Endoscopy with Debridement-312 37 completed ISABEL WALTER [address] [place], [address], [place] - [facility], [facility] 02/22/2023 12:41:13 3 FESS completed Ab Osuna MD [address] [place], [address], [place] - [facility], [facility] 03/09/2023 10:16:51 3 Ear cleaning completed ISABEL Acuna [address] [place] [address], [address], [place] - [facility], [facility] 01/03/2023 11:36:28 3 Audiologic Assessment completed Tobin Ruiz [address] [place] [address], [address], [place] - [facility], [facility] 01/03/2023 14:43:[address] Sinus - In office completed ISABEL Acuna [address] [place] [address], [address], [place] - [facility], [facility] 12/20/2022 18:10:52 3 Ear cleaning completed ISABEL Acuna [address] [place] [address], [address], [place] - [facility], [facility] 12/20/2022 17:34:45 3 Ear cleaning completed ISABEL Acuna [address] [place] [address], [address], [place] - [facility], [facility] 12/15/2022 16:09:14 Breast Surgery completed ISABEL WALTER [address] [place] [address], [address], [place] - [facility], [facility] 12/15/2022 14:40:04 Imaging Results None recorded. Procedure Notes None recorded. Medical Equipment None Reported. Allergies Allergen ID Allergen Name Allergen Category Reaction Reaction Severity Criticality Documentation Date Start Date Code Code System Note Provider Name and Address Organization Details Recorded Time [id number] Substance with sulfonami de structure and antibacte rial mechanism of action (substanc e) medicatio n Not available Not available Not available 12/15/2022 62541 [id number] SNOMED ISABEL WALTER [address] [place] [address], [address], [place] - [facility], [facility] 14:40:29 Medications Name Sig Start Date Stop Date Status Note LastModified by Organization Details LastModified Time bupropion HCl SR 150 mg tablet,12 hr sustained-r elease TAKE 1 TABLET BY MOUTH AT 7 AM AND 4 TO 5PM active Not Available Not Available No t Available clindamycin HCl 300 mg capsule TAKE ONE CAPSULE BY MOUTH EVERY MORNING AND EVERY EVENING. TAKE ONE CAPSULE BY MOUTH EVERY NIGHT AT BEDTIME FOR TEN DAYS. 12/14 completed Not Available Not Available Not Available trazodone 50 mg tablet active Not Available Not Available Not Available hydrocodone 5 mg-acetamin ophen 325 mg tablet TAKE 1 TABLET BY MOUTH EVERY 6 HOURS FOR UP TO 14 DAYS NEEDED FOR MODERATE PAIN active Not Available Not Available No t Available alendronate 70 mg tablet TAKE ONE TABLET BY MOUTH EVERY 7 DAYS. TAKE IN AM WITH A FULL GLASS OF WATER ON AN EMPTY STOMACH. NO FOOD AND DO NOT LIE DOWN FOR 30 MINUTES. active Not Available Not Available No t Available topiramate 25 mg tablet TAKE 1 TABLET BY MOUTH TWICE DAILY AT 7 AM AND 4 TO 5PM active Not Available Not Available No t Available valacyclovi r 500 mg tablet TAKE 1 TABLET BY MOUTH EVERY MORNING AND EVERY EVENING FOR 10 DAYS active Not Available Not Available No t Available temazepam 7.5 mg capsule active Not Available Not Available Not Available levothyroxi ne 75 mcg tablet active Not Available Not Available Not Available estradiol 1 mg tablet TAKE 1 TABLET BY MOUTH DAILY active Not Available Not Available No t Available temazepam 15 mg capsule active Not Available Not Available Not Available dexamethaso ne 1 mg tablet TAKE 1 TABLET BY MOUTH BETWEEN 11 PM AND MIDNIGHT THE NIGHT BEFORE MORNING BLOOD DRAW active Not Available Not Available No t Available hydrocodone 7.5 mg-acetamin ophen 325 mg tablet TAKE 1 TABLET BY MOUTH EVERY 6 HOURS NEEDED active Not Available Not Available No t Available metoprolol tartrate 50 mg tablet active Not Available Not Available No t Available progesteron e micronized 200 mg capsule TAKE 1 CAPSULE BY MOUTH DAILY AT BEDTIME active Not Available Not Available No t Available ondansetron 4 mg disintegrat ing tablet DISSOLVE 1 TABLET ON THE TONGUE EVERY 8 HOURS NEEDED FOR NAUSEA active Not Available Not Available No t Available mometasone 0.1 % topical cream APPLY THIN LAYER TOPICALLY TO THE AFFECTED AREA EVERY DAY NEEDED FOR ITCHING active Not Available Not Available No t Available progesteron e micronized 100 mg capsule TAKE 1 CAPSULE BY MOUTH DAILY AT BEDTIME active Not Available Not Available No t Available zolpidem ER 6.25 mg tablet,exte nded release,mul tiphase active Not Available Not Available Not Available levothyroxi ne active Not Available Not Available Not Available Clindamycin 12/14 completed Not Available Not Available Not Available Eliquis 5 mg tablet TAKE 1 TABLET TWICE A DAY TO COMPLETE 30 DAY COURSE, DIRECTED ON PACKAGE LABELING active Not Available Not Available No t Available Eliquis active Not Available Not Avail able Not Available Mounjaro 5 mg/0.5 mL subcutaneou s pen injector INJECT ONE PEN SUBCUTANE OUS ONCE WEEKLY. active Not Available Not Available No t Available Mounjaro 2.5 mg/0.5 mL subcutaneou s pen injector INJECT 2.5MG SUBCUTANE OUS ONCE WEEKLY active Not Available Not Available No t Available Vitals Date Recorded Body height Body mass index (BMI) Body weight Provider Name and Address Organization Details Last Updated DateTime 12/15/2023 180.34 cm 32.8 kg/m2 928074.21 g Katina Cates [place] [facility] 12/15/2023 10:48:13 Date Recorded Body height Body mass index (BMI) Body weight Provider Name and Address Organization Details Last Updated DateTime 02/22/2023 180.34 cm 32.1 kg/m2 233043.25 g ISABEL WALTER [address] [place], [address], [facility] 02/22/2023 12:39:55 Social History None recorded. Functional Status Question Answer Note LastModified by Organization D etails LastModified Time What is your level of alcohol consumption? Moderate [email or web address] Information not available 02/22/2023 Mental Status None recorded. Family History Nothing Reported. Medical History Condition Response Headaches/Migraines Y Thyroid Problems Y Ear Infections Y Sleep Apnea/CPAP Y Sleep Disorder Y Allergies/Immune disorder Y Gynecological HistoryNo gynecological history recorded. Obstetrics History GPAL:G 0 P 0 0 0 0 Past Encounters Encounter ID Performer Location Encounter Start Date Encounter Closed Date Diagnosis/Indication Diagnosis SNOMED-CT Code Diagnosis ICD10 Code Diagnosis Note [id number] MD Blessing Noe [address] [place] [address] 12/15/2022 14:26:39 12/22/2022 17:00:49 Acute otitis externa of left ear 7068445363 434297 H60.502 Deviated nasal septum 12 0746573 J34.2 Hypertroph y of nasal turbinates 55267897 J34.3 [id number] Ab Osuna MD [address] [place]O [place] [address] 12/20/2022 16:56:27 12/22/2022 17:19:17 Acute otitis externa of left ear 5949508691 393564 H60.502 Deviated nasal septum 12 0957960 J34.2 Hypertroph y of nasal turbinates 00585102 J34.3 Allergic rhinitis 893310 04 J30.9 She reports allergy symptoms since moving to [place] in 2004. She also has two cats. I have discussed the pathophysi ology of allergic rhinitis, and how it relates to nasal drainage and nasal obstructio n. Options for therapy include no therapy, medical therapy and surgical interventi on Medical therapy includes use of steroid nasal sprays and/or antihistam ine nasal sprays. Combinatio n therapy provides better symptom relief over individual nasal spray medication . In addition, saline nasal spray and/ or saline nasal lavage can also help to thin the nasal mucous to decrease irritation from the mucous. I have discussed how oral antihistam ine medication s can provide some relief of sneezing, however, they do not provide the best relief of nasal congestion and drainage symptoms. Lastly, surgical therapy such as turbinate reduction is a option to improve nasal airflow. This can be performed in the office or in the OR if medical therapies fail. Thank you for the opportunit y to work with this pleasant patient. Please feel free to call with questions/ concerns. Snoring 58128131 R06.83 Sleep apnea 72814953 G47 .30 Chronic sinusitis 408114 00 J32.0 J32.1 J32.2 J32.3 J01.41 J34.3 J34.2 Additional ly, she reports a several year history of chronic nasal congestion , sinonasal pressure/p ain, thick drainage, and recurrent sinusitis. She has been on multiple antibiotic s over the past 6 months, including currently on an oral antibiotic s. She has tried nasal saline, nasal steroids/a ntihistami gracy, oral antihistam jonel and decongesta nts. Unfortunat [place], she continues to have symptoms. On exam, nasal septal deviation and turbinate hypertroph y. We reviewed the findings of her sinus CT scan which shows sinus disease bilaterall y and turbinate hypertroph y. We discussed the options, risks, and benefits of proceeding with an in-office sinus surgery and turbinate reduction, and they are agreeable. We will schedule at a mutually convenient date. Chronic se borrheic otitis externa 046218968 H60.8X9 [id number] Tobin Ruiz[address] [address] 01/03/2023 10:54:11 01/03/2023 14:45:07 Sensorineural hearing loss 31915161 H90.3 [id number] MD Lisbeth Noeood [address] [place] [address] 01/03/2023 10:54:15 01/03/2023 16:42:58 Chronic sinusitis 82654709 J32.0 J32.1 J32.2 J32.3 J01.41 J34.3 J34.2 Allergic rhinitis 853584 04 J30.9 Deviated nasal septum 12 5455361 J34.2 Acute otit is externa of left ear 8850332278 113152 H60.502 Hypertroph y of nasal turbinates 91824259 J34.3 Snoring 45048715 R06.83 Sleep apnea 96398525 G47 .30 Chronic se borrheic otitis externa 659328276 H60.8X9 [id number] MD Lisbeth [place] [place] [address] 02/10/2023 09:16:00 03/09/2023 12:33:43 Chronic sinusitis 51509324 J32.9 J32.0 J32.1 J32.2 J32.3 J01.41 Hypertroph y of nasal turbinates 79265053 J34.3 J34.2 Brittany bullosa 797718608 J34.89 [id number] MD Blessing Noe [address] [place] [address] 02/22/2023 12:14:38 02/23/2023 12:00:34 Chronic sinusitis 15058546 J32.9 J32.0 J32.1 J32.2 J32.3 J01.41 Hypertroph y of nasal turbinates 47618749 J34.3 J34.2 [id number] MD Blessing Noe [facility] [place] [address] 04/11/2023 11:01:28 04/12/2023 15:05:18 Otitis externa 5610523 H60.91 [id number] MD Blessing Noe [address] [place] [address] 2 04/18/2023 14:24:36 05/02/2023 13:07:36 Otitis externa 2445129 H60.91 Chronic sinusitis 651769 00 J32.0 J32.1 J32.2 J32.3 J01.41 J34.3 J34.2 Allergic rhinitis 072865 04 J30.9 [id number] [place] Ru[place] [address] 12/15/2023 10:21:22 12/15/2023 10:43:10 Sensorineural hearing loss 32392670 H90.42 [id number] [place] [address] 12/15/2023 10:21:09 12/19/2023 13:34:14 Otitis externa 8578520 H60.91 Chronic sinusitis 233516 00 J32.0 J32.1 J32.2 J32.3 J01.41 J34.3 J34.2 Allergic rhinitis 926338 04 J30.9 Health Concerns Section Related Observation LastModified by Organization Detai ls LastModified Time None Recorded Concern Status LastModified by Organization Details LastModified Time None Recorded Advance Directives Directive None Recorded Payers Insurance Date Sequence Insurance Name Policy Number Policy [place] Covered Member ID [place] Member ID Guarantor Name 03/27/2024 1 [facility] Clary Bateman [id number] Clary Bateman Notes Date Note Type Note Provider Name and Address Organization Details Recorded Time 02/22/2023 text/html Patient presents today for post op following FESS (F, M, E), turbinate reduction performed on 02/10/23. Pt reports some mild nasal congestion but states she is overall doing much better and feeling improvement. She is rinsing her nose twice daily.No other questions or concerns at this time. Ab Osuna MD [address] [place] [address], [address], [facility], [facility] 02/22/2023 12:56:22 04/11/2023 text/html Pt presenting to clinic today for evaluation of right ear pain for last4 days.She reports drainage, difficulty hearing, fullness, pressure, and pain.She has not been treated with any antibiotics or pain management at this time.No other questions or concerns at this time. ISABEL Acuna [address] [place] [address], [address], [employer], [facility] 04/11/2023 16:06:04 04/18/2023 text/html Pt presenting to clinic today for follow up of right sided otitis externa and s/p turbinate reduction and sinus surgery 02/10/23. She was last seen on 04/11/23 and right ear was cleaned and treated topically at that time. She was instructed to continue nasal saline rinses, flonase and azelastine.At today's visit she reports her ears feel better, but still itches. She also reports ongoing left frontal headaches. No other questions or concerns at this time. ISABEL Acuna [address] [place] [address], [address], [facility], [facility] 04/19/2023 11:07:15 12/15/2023 text/html Patient presents today with ear fullness in right ear. Pt states symptoms began 7 months ago.Patient reports every time she leans forward and comes back up she feels fluid in her right side.. Pt aditi using nasal rinses or sprays. ISABEL Acuna [address] [place] [address], [address], [facility], [facility] 12/19/2023 11:03:26 OBGyn Episode No OBEpisode recorded.
--- OUTSIDE RECORDS SUMMARY | 2024-09-28 23:40 | XMS_ITS | Clinical Summary ---
Author Organization [facility] Address [address] [facility] [place] [address] Phone Care Team Providers Care Typing Teacher Name Role Phone Neema Segal Primary Care Provider [phone] Allergies Active Allergy Reactions Criticality Noted Date Comments Sulfa Antibiotics Rash Low 01/13/2022 fever Medications Medication Sig Dispensed Refills Start Date End Date Status medroxyPROGESTERone Acetate (DEPO-PROVERA IM) Inject as directed Active esomeprazole (NexIUM) 40 MG capsule Take 40 mg by mouth every morning before breakfast Active levothyroxine (SYNTHROID, LEVOTHROID) 25 MCG tablet Take 25 mcg by mouth every morning before breakfast Active Active Problems Problem Noted Date Diagnosed Date Fatigue 01/13/2022 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 Heart murmur 01/13/2022 Dyslipidemia 01/13/2022 Family History Medical History Relation Name Comments Heart attack Maternal Grandfather multipl e PA, CABG Relation Name Status Comments Maternal Grandfather (Age 58) Social History Tobacco Use Types Packs/Day Years Used Date Smoking Tobacco: Former Cigarettes 0.8 20 2019 Smokeless Tobacco: Never Alcohol Use Standard Drinks/Week Comments Yes 7 (1 standard drink = 0.6 oz pur e alcohol) 3 times a week Sex and Gender Information Value Date Recorded Sex Assigned at Not on file Gender Identity Not on file Sexual Orientation Not on file Last Filed Vital Signs Vital Sign Reading Time Taken Comments Blood Pressure 122/84 01/13/2022 1:38 PM CDT Pulse 77 01/13/2022 1:38 PM CDT Temperature - - Respiratory Rate - - Oxygen Saturation - - Inhaled Oxygen Concentration - - Weight 113 kg (249 lb 12.8 oz) 01/13/2022 1:38 P M CDT Height 180.3 cm (5' 11 ) 01/13/2022 1:38 PM CDT Body Mass Index 34.84 01/13/2022 1:38 PM CDT Plan of Treatment Health Maintenance Due Date Last Done Comments Annual Wellness (AWV) 1971 PAP SMEAR 1971 Hepatitis B Vaccines (1 of 3 - 19+ 3-dose series) 1990 MAMMOGRAM 2011 COLONOSCOPY 02/18/2016 CT Colonography 02/18/2016 Cologuard [FIT-DNA] 02/18/2016 Colorectal Cancer Screening 02/18/2016 FIT 02/18/2016 FOBT 02/18/2016 SIGMOIDOSCOPY 02/18/2016 COVID 19 VACCINE ( - 2023-2 5 season) 2023 Influenza Vaccine (#1) 2024 HIB VACCINES Aged Out No longer eligi ble based on patient's age to complete this topic HPV VACCINES Aged Out No longer eligi ble based on patient's age to complete this topic Hepatitis A Vaccines Aged Out No long er eligible based on patient's age to complete this topic MENINGOCOCCAL B VACCINE Aged Out No l onger eligible based on patient's age to complete this topic Pneumococcal Vaccine: Pediat rics (0 to 5 Years) and At-Risk Patients (6 to 49 Years) Aged Out No longer eligible b ased on patient's age to complete this topic Care Teams Typing Teacher Relationship Specialty Start Date End Date Neema Segal [address] [address] [place] [phone] PCP - General 12/28/21
--- OUTSIDE RECORDS SUMMARY | 2024-09-28 23:40 | XMS_ITS | Patient Health Record ---
Author Organization [facility] Address [address] [place] [address] Care Team Providers Care Paper Stacker Name Role Phone Luis Felipe Anthony Unavailable [phone] Allergies Allergen (clinical drug ingredient) Drug/Non Drug Allergy documented on EMR Reaction Allergy Type Onset Date Status Substance with sulfonamide structure and antibacterial mechanism of action (substance) SULFA (uncoded) RASH Allergy Active Reason For Referral No Information Medications Medication SIG (Take, Route, Frequency, Duration) Notes Start Date End Date Status Levothyroxine Sodium 75 MCG Oral for 90 Days Active Zolpidem Tartrate ER 6.25 MG Oral for 30 Days Active Progesterone 200 MG Oral for 90 Days Active Social History Tobacco Use: Social History Observation Description Date Details (start date - stop date) Former Smoker NA - NA Tobacco Use/Smoking Question Answer Notes Tobacco use: former smoker Problems Problem Type SNOMED Code ICD Code Onset Dates Problem Status W/U Status Risk Notes Problem Presbyopia ([id number]) Presbyopia (H52.4) Active confirmed Encounters Encounter Location Date Provider Diagnosis [email or web address] [address] [place] [address] 11/09/2023 Luis Felipe Anthony Presbyopia H52.[email or web address] [facility] [address] [place] [address] 11/09/2023 Assessments Encounter Date Diagnosis (ICD Code) Assessment Notes Treatment Notes Treatment Clinical Notes Section Notes 11/09/2023 Presbyopia (ICD-10 - H52.4) Plan Of Treatment Next Appt Details Provider Name:Luis Felipe humphreys, 11/05/2024 11:30:00 AM, [address] [place], [address], Insurance Providers Payer Name Payer Address Payer Phone Subscriber Number Group Number Insured Name Patient Relationship to Insured Coverage Start Date Coverage End Date [employer] [address] [place] [address] [id number] Clary Bateman Self - patient is the insured Medical (General) History Medical History History ICD Code nystagmus: No retinal tear: No retinopathy: No scleritis: No scleroderma: No seasonal allergies: Yes seizure disorder: No strabismus: No stroke: No substance abuse: No type 1 diabetes mellitus: No type 2 diabetes mellitus: No allergies: Yes cataracts: No diabetic retinopathy: No eye problems: No glaucoma: No hypertension: No iritis: No
--- NOTE | 2024-09-28 23:45 | XRR_ITS ---
PROCEDURE INFORMATION: Exam: XR Chest Exam date and time: 09/28/2024 11:55 PM Age: 54 years old Clinical indication: Pain; Shortness of breath; Chest pressure; Prior surgery; Surgery date: 6+ months; Surgery type: Cardiac node ablation; Chest discomfort with tachycardia and SOB. History of afib rvr. ; Additional info: Chest pain TECHNIQUE: Imaging protocol: Radiologic exam of the chest. Views: 1 view. COMPARISON: No relevant prior studies available. FINDINGS: Lungs: See Heart/Mediastinum finding. Pleural spaces: Unremarkable. No pleural effusion. No pneumothorax. Heart/Mediastinum: Cardiomegaly and mild pulmonary vascular congestion. Bones/joints: Unremarkable. XR/XR chest 1V portable [id number] IMPRESSION: Cardiomegaly and mild pulmonary vascular congestion.
[2024-09-28 23:46] VITALS: BP 119/94; PULSE 171; RESP 18; TEMP 36.4; O2SAT 97; BMI 34.2
[2024-09-28 23:49] VITALS: BP 119/94; PULSE 118; RESP 18; O2SAT 99
[2024-09-28 23:54] LABS: Hematocrit 44.2 % (36-47); Hemoglobin 14.80 g/dL (11.27-16.99); Mean Corpuscular HGB Conc 33.5 g/dL (30-55); Mean Corpuscular Hemoglobin 29.8 pg (27-33); Mean Corpuscular Volume 89.1 fl (85-98); Nucleated Red Blood Cells % 0 %; Platelet Count 254 10^3/cmm (157-399); Red Blood Count 4.96 10^6/uL (3.85-5.65); White Blood Count 11.54 10^3/uL (3.29-11.43)
[2024-09-28] MEDS: dilTIAZem 5 mg/mL SDV 5 mL 10 MG IVP (23:55)
[2024-09-29] VITALS (8 sets, daily range): BP systolic 116–130; BP diastolic 75–88; PULSE 88–169; RESP 15–27; TEMP 36.9; O2SAT 93–99
[2024-09-29 00:04] LABS: INR 0.93 (0.8-1.2); Partial Thromboplastin Time 25.8 SECONDS (23.9-36.7); Prothrombin Time 13.20 SECONDS (12.1-14.9)
[2024-09-29 00:13] LABS: Troponin(5th) Baseline 8 ng/L (0-10)
[2024-09-29 00:14] LABS: Alanine Aminotransferase 46 U/L (0-33); Albumin Level 4.6 g/dL (3.5-5.2); Alkaline Phosphatase 105 U/L (35-105); Anion Gap 20.1 (5-19); Aspartate Amino Transferase 60 U/L (0-32); Blood Urea Nitrogen 14 mg/dL (6-20); Calcium 10.0 mg/dL (8.5-10.5); Carbon Dioxide 19 mmol/L (22-29); Chloride 104 mmol/L (98-107); Creatinine Clr Calc Pharmacy 99.2071; Globulin 3.0 g/dL (1.3-4.6); Glucose 202 mg/dL (65-115); Osmolality Calculated 294 mOsm/kg (285-295); Potassium 4.1 mmol/L (3.5-5.1); Sodium 139 mmol/L (136-145); Total Protein 7.6 g/dL (6.6-8.7)
--- NOTE | 2024-09-29 01:01 | ECG_ITS ---
[facility] Test Date: 2024-09-29 Pat Name: Clary Escobedo Department: Room: Gender: Female [employer]: : 1970 Requested By: Gentry Acosta Order Number: [id number] Rubén MD: Dion Suarez M.D. Measurements Intervals Delight Rate: 104 P: 52 DC: 169 QRS: -2 QRSD: 97 T: 37 QT: 348 QTc: 458 Interpretive Statements SINUS TACHYCARDIA POSSIBLE LEFT ATRIAL ENLARGEMENT [-0.1mV P-WAVE IN V1/V2] ABNORMAL RHYTHM ECG Compared to ECG 09/28/2024 23:34:52 Atrial fibrillation no longer present ST (T wave) deviation no longer present Electronically Signed On 09-29-2024 18:35:31 CDT by Dion Suarez M.D. [email or web address]
[2024-09-29] MEDS: propofol 10 mg/mL SDV 20 mL 150 MG IVP (01:05)
[2024-09-29] MEDS: metoprolol succinate ER (24 HR) 25 mg Tablet 12.5 MG PO (01:39)
[2024-09-29 02:06] LABS: Troponin 5 2HR 11.57 ng/L (0-10); Troponin 5 2HR Delta 3.57 ABS# (0-10)
--- NOTE | 2024-09-29 03:22 | ED_ITS ---
HPI - Arrhythmia/Palpitations 2 General: Chief Complaint: Arrhythmia/Palpitations Stated Complaint: SOB N/V Rapid heart rate Time Seen by Provider: 09/28/24 23:44 History of Present Illness: Patient is a generally well 54-year-old female on vacation from [place] who several years ago had atrial fibrillation for which she received an ablation and has not had any bouts of atrial fibrillation ever since. She does not take any rate limiting medication or blood thinners. She does not take any antihypertensive medications. [place] which she started to feel palpitations. On arrival she has a heart rate of 180 and monitor shows atrial fibrillation. She denies chest pressure but endorses mild shortness of breath and lightheadedness. She denies recent sickness or fever. She has no other acute complaints. Related Data Previous Rx's ?Medication ?Instructions ?Recorded metoprolol succinate 25 mg 12.5 mg (1/2 x 25 mg) PO DA MERYL 09/29/24 tablet,extended release 24 hr atrial fibrillation #30 tabs Allergies Allergy/AdvReac Type Severity Reaction Status Date / Time Sulfa (Sulfonamide Allergy ALGY-Rash Verified 09/28/24 23:49 Antibiotics) Physical Exam 2 Const: COMMON NORMALS: no acute distress, patient oriented x3 and alert HENMT: COMMON NORMALS: normocephalic and atraumatic HEAD & SCALP: n ormocephalic and atraumatic Eye: COMMON NORMALS: Equal, round and reactive pupils present, EOMs intact bilaterally and no scleral icterus PUPIL: Yes Equal, round and reactive pupils present Resp: COMMON NORMALS: normal respiratory effort and No retractions Cardio: OTHER: Irregularly irregular tachycardic rhythm. No murmur. GI: COMMON NORMALS: Normal to inspection, nondistended, normoactive bowel sounds present, Soft to palpation and non-tender PALPATION: Yes Soft to palpation Neuro: COMMON NORMALS: patient oriented x3 SENSORIUM/ORIENTATION: Yes alert Skin: COMMON NORMALS: no rashes or lesions noted GENERAL SKIN EXAM: no rashes or lesions noted Procedures Procedural Sedation Indication: other ASA Class: I Preparation: lime kiln worker helper applied, pulse oximeter, supplemental O2 applied, suction/airway equipment at bedside and IV secured IV Propofol dose (mg): 100 Patient Tolerated Procedure: well and no complications Complications: none Additional Comments: atrial fibrillation with RVR was treated with 200 J biphasic synchronized cardioversion. She immediately converted to sinus rhythm and stayed in sinus rhythm for remainder of her emergency department stay. Course 2 Vital Signs: Vital signs: Vital Signs Temperature 98.5 F 09/29/24 00:50 Pulse Rate 88 09/29/24 02:29 Respiratory Rate 16 09/29/24 02:29 Blood Pressure 116/75 09/29/24 02:29 Pulse Oximetry 96 09/29/24 02:29 Oxygen Delivery Me thod Nasal Cannula 09/29/24 01:30 Oxygen Flow Rate 2 09/29/24 01:30 MDM - Arrhythmia/Palpitations Medical Decision Making Patient remained hemodynamically stable 30 course. She was offered hospitalization and rate control and cardiac consultation but also offered home electrical cardioversion as she has only been in atrial fibrillation for roughly 1-1/2 hours. She was given a dose of Lovenox and initial 10 mg IV Cardizem and heart rate responded from 180 down to 130 but she remained in atrial fibrillation. After electrical cardioversion, she remained in sinus rhythm. 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 She knows that she is always welcome back in the emergency department needed Lab Data 09/28/24 23:45 09/28/24 23:45 Radiology Impressions Chest X-Ray 09/28/24 23:45 IMPRESSION: Cardiomegaly and mild pulmonary vascular congestion. Laboratory Results WBC 11.54 10^3/uL (3.29-11.43) H 09/28/24 23:45 RBC 4.96 10^6/uL (3.85-5.65) 09/28/24 23:45 Hgb 14.80 g/dL (11.27-16.99) 09/28/24 23:45 Hct 44.2 % (36-47) 09/28/24 23:45 MCV 89.1 fl (85-98) 09/28/24 23:45 MCH 29.8 pg (27-33) 09/28/24 23:45 MCHC 33.5 g/dL (30-55) 09/28/24 23:45 RDW 13.1 % (12.1-15.1) 09/28/24 23:45 Plt Count 254 10^3/cmm (157-399) 09/28/24 23:45 MPV 9.0 fL (7.4-10.4) 09/28/24 23:45 Neut % (Auto) 67.3 % 09/28/24 23:45 Lymph % (Auto) 23.4 % 09/28/24 23:45 Cook % (Auto) 7.2 % 09/28/24 23:45 Eos % (Auto) 1.4 % 09/28/24 23:45 Baso % (Auto) 0.5 % 09/28/24 23:45 Neut # (Auto) 7.77 10^3/uL (1.8-7.7) H 09/28/24 23:45 Lymph # (Auto) 2.7 10^3/uL (0.8-4.8) 09/28/24 23:45 Cook # (Auto) 0.8 10^3/uL (0.2-0.9) 09/28/24 23:45 Eos # (Auto) 0.2 10^3/uL (0.0-0.8) 09/28/24 23:45 Baso # (Auto) 0.1 10^3/uL (0.0-0.1) 09/28/24 23:45 Nucleated RBC % (auto) 0 % 09/28/24 23:45 Nucleated RBCs # 0.0 /100WBC 09/28/24 23:45 PT 13.20 SECONDS (12.1-14.9) 09/28/24 23:45 INR 0.93 (0.8-1.2) 09/28/24 23:45 APTT 25.8 SECONDS (23.9-36.7) 09/28/24 23:45 Sodium 139 mmol/L (136-145) 09/28/24 23:45 Potassium 4.1 mmol/L (3.5-5.1) 09/28/24 23:45 Chloride 104 mmol/L (98-107) 09/28/24 23:45 Carbon Dioxide 19 mmol/L (22-29) L 09/28/24 23:45 Anion Gap 20.1 (5-19) H 09/28/24 23:45 BUN 14 mg/dL (6-20) 09/28/24 23:45 Creatinine 0.9 mg/dL (0.5-0.9) 09/28/24 23:45 GFR Calculation 65.5 mL/min (90-130) L 09/28/24 23:45 Glucose 202 mg/dL (65-115) H 09/28/24 23:45 Calculated Osmolality 294 mOsm/kg (285-295) 09/28/24 23:45 Calcium 10.0 mg/dL (8.5-10.5) 09/28/24 23:45 Total Bilirubin 0.2 mg/dL (0.15-1.2) 09/28/24 23:45 AST 60 U/L (0-32) H 09/28/24 23:45 ALT 46 U/L (0-33) H 09/28/24 23:45 Alkaline Phosphatase 105 U/L (35-105) 09/28/24 23:45 Troponin T Baseline 8 ng/L (0-10) 09/28/24 23:45 Troponin T 120 Minute 11.57 ng/L (0-10) H 09/29/24 01:39 Delta Troponin T 3.57 ABS# (0-10) 09/29/24 01:39 Total Protein 7.6 g/dL (6.6-8.7) 09/28/24 23:45 Albumin 4.6 g/dL (3.5-5.2) 09/28/24 23:45 Globulin 3.0 g/dL (1.3-4.6) 09/28/24 23:45 All radiology interpretation(s) finalized by discharge EKG Data EKG 1: Interpretation: Time?233?atrial fibrillation with RVR, rate of 171, rate related aVR elevation in lateral and inferior depressions, no T wave inversions, QTc = 360. Other EKG comments: Chest X-Ray 09/28/24 23:45 IMPRESSION: Cardiomegaly and mild pulmonary vascular congestion. EKG 2: Interpretation: Post electrical cardioversion: Time?0101?sinus tachycardia, rate of 104, no ST segment elevation or depression, no T wave versions, intervals within normal limits. QTc = 498. Other EKG comments: Chest X-Ray 09/28/24 23:45 IMPRESSION: Cardiomegaly and mild pulmonary vascular congestion. Discharge Plan Discharge Patient Disposition: Home Clinical Impression: Atrial fibrillation with rapid ventricular response Condition: Stable Prescriptions: New metoprolol succinate 25 mg tablet extended release 24 hr 12.5 mg PO DAILY Qty: 30 0RF Discharge Orders: Discharge ED (Routine); Ordered 09/29/24 Ordered By: Gentry Baez Discharge Diet: Usual diet Discharge Activity: Increase activity as tolerated Patient Instructions: A-fib (Atrial Fibrillation) (ED), Cardioversion (DC), Patient Portal & Mirella Instructions Activity Restrictions/Additional Instructions: Please follow-up with your research contracts supervisor back home to make sure they do not want to perform any further diagnostic studies or start you on medication. The point of metoprolol is to try and keep you from going back into atrial fibrillation. Please do not drink to excess as this can also cause atrial fibrillation. Print Language: French Coding Level of Care Code ED Program Director [employer] for Neri Hinds
== END 2024-09-29 02:23 | disposition home or self-care (01) ==
PROVIDERS: Emergency Provider Student in an Organized Health Care Education/Training Program
DX: I48.20 Chronic atrial fibrillation, unspecified (principal)
CPT/HCPCS: 36415; 71045; 80053; 84484; 85025; 85610; 85730; 93005; 96361; 96372; 96374; 99152; 99285; J1650; J2704; J3490; J7030; J9999